=== PATIENT | male | born 1960 | race Caucasian/White ===

== ENCOUNTER 2016-03-20 15:41 | Outpatient (CLI) | payer MEDICARE, OTHER ==
[2016-03-20] MEDS ORDERED: GADOBUTROL 10 MMOL/10 ML VIAL IVP ONE (16:31)
== END 2016-03-20 15:42 | disposition home or self-care (01) ==
DX: R41.3 Other amnesia (principal); I48.0 Paroxysmal atrial fibrillation; R51 Headache; R41.82 Altered mental status, unspecified; R90.82 White matter disease, unspecified
CPT/HCPCS: 70553; A9585

== ENCOUNTER 2016-04-17 13:08 | Outpatient (CLI) | payer MEDICARE, OTHER | END 2016-04-17 13:09 | disposition home or self-care (01) | DX: I48.0 Paroxysmal atrial fibrillation (principal) ==

== ENCOUNTER 2016-05-11 11:00 | Outpatient (CLI) | payer MEDICARE, OTHER | END 2016-05-11 11:01 | disposition home or self-care (01) | DX: N39.0 Urinary tract infection, site not specified (principal) ==

== ENCOUNTER 2016-05-14 08:00 | Outpatient (CLI) | payer MEDICARE, OTHER | END 2016-05-14 08:01 | disposition home or self-care (01) | DX: R41.3 Other amnesia (principal); R51 Headache; D72.829 Elevated white blood cell count, unspecified; R63.4 Abnormal weight loss; R41.82 Altered mental status, unspecified ==

== ENCOUNTER 2016-05-25 10:14 | Outpatient (CLI) | payer MEDICARE, OTHER ==
[2016-05-25] MEDS ORDERED: IOPAMIDOL-300 50 ML VIAL PO ONE (12:14)
[2016-05-25] MEDS ORDERED: IOPAMIDOL-300 100 ML VIAL IVP ONE (12:15)
== END 2016-05-25 10:15 | disposition home or self-care (01) ==
DX: J44.1 Chronic obstructive pulmonary disease with (acute) exacerbation (principal); R53.83 Other fatigue; R63.4 Abnormal weight loss; D72.829 Elevated white blood cell count, unspecified; F17.200 Nicotine dependence, unspecified, uncomplicated; R41.82 Altered mental status, unspecified
CPT/HCPCS: 71260; 74177; Q9967

== ENCOUNTER 2016-07-24 11:10 | Outpatient (CLI) | payer MEDICARE, OTHER | END 2016-07-24 11:11 | disposition home or self-care (01) | LOC: SC 11:10 | PROVIDERS: ATTEND Nurse Practitioner Family | DX: G47.33 Obstructive sleep apnea (adult) (pediatric) (principal) | CPT/HCPCS: 99215; G0463; 99212 ==

== ENCOUNTER 2016-08-18 21:01 | Outpatient (CLI) | payer MEDICARE, OTHER | END 2016-08-18 21:02 | disposition home or self-care (01) | LOC: SC 21:01 | PROVIDERS: ATTEND Internal Medicine Pulmonary Disease | DX: G47.33 Obstructive sleep apnea (adult) (pediatric) (principal); G47.61 Periodic limb movement disorder; R00.1 Bradycardia, unspecified; Z68.29 Body mass index [BMI] 29.0-29.9, adult | CPT/HCPCS: 95811 ==

== ENCOUNTER 2016-09-06 09:42 | Outpatient (CLI) | payer MEDICARE, OTHER ==
[2016-09-06 20:30] LABS: BUN - BLOOD UREA NITROGEN 12 mg/dL (6-20); CALCIUM 8.9 mg/dL (8.5-10.3); CARBON DIOXIDE - CO2 27 mmol/L (21-32); CHLORIDE 107 mmol/L (101-111); CREATININE 0.8 mg/dL (0.6-1.2); GFR - MDRD 100 (>89); GLUCOSE 91 mg/dL (70-100); POTASSIUM 4.4 mmol/L (3.5-5.0); SODIUM 140 mmol/L (135-145)
== END 2016-09-06 09:43 | disposition home or self-care (01) ==
LOC: LAB.WCP 09:42
PROVIDERS: ATTEND Family Medicine
DX: I48.0 Paroxysmal atrial fibrillation (principal)
CPT/HCPCS: 36415; 80048; 80162

== ENCOUNTER 2016-09-19 14:30 | Outpatient (CLI) | payer MEDICARE, OTHER | END 2016-09-19 14:31 | disposition home or self-care (01) | LOC: SC 14:30 | PROVIDERS: ATTEND Nurse Practitioner Family | DX: G47.33 Obstructive sleep apnea (adult) (pediatric) (principal); G47.61 Periodic limb movement disorder; R00.1 Bradycardia, unspecified | CPT/HCPCS: 99214; G0463; 99212 ==

== ENCOUNTER 2016-12-27 11:15 | Outpatient (CLI) | payer MEDICARE, OTHER | END 2016-12-27 11:16 | disposition home or self-care (01) | LOC: SC 11:15 | PROVIDERS: ATTEND Nurse Practitioner Family | DX: G47.33 Obstructive sleep apnea (adult) (pediatric) (principal) | CPT/HCPCS: 99215; G0463; 99212 ==

== ENCOUNTER 2017-01-05 19:24 | Outpatient (CLI) | payer MEDICARE, OTHER | END 2017-01-05 19:25 | disposition home or self-care (01) | LOC: SC 19:24 | PROVIDERS: ATTEND Internal Medicine Pulmonary Disease | DX: G47.33 Obstructive sleep apnea (adult) (pediatric) (principal); Z68.41 Body mass index [BMI] 40.0-44.9, adult | CPT/HCPCS: 95810 ==

== ENCOUNTER 2017-03-20 14:39 | Outpatient (CLI) | payer MEDICARE, OTHER | END 2017-03-20 14:40 | disposition home or self-care (01) | LOC: SC 14:39 | PROVIDERS: ATTEND Nurse Practitioner Family | DX: G47.33 Obstructive sleep apnea (adult) (pediatric) (principal) | CPT/HCPCS: 99214; G0463; 99212 ==

== ENCOUNTER 2017-05-07 08:41 | Outpatient (CLI) | payer MEDICARE, OTHER ==
[2017-05-07 08:52] LABS: BASOPHILS # (AUTO) 0.2 10^3/uL (0.0-0.1); BASOPHILS % (AUTO) 1.3 %; EOSINOPHILS # (AUTO) 0.2 10^3/uL (0.0-0.7); EOSINOPHILS % (AUTO) 1.6 %; HGB - HEMOGLOBIN 15.7 g/dL (14.0-18.0); LYMPHOCYTES # (AUTO) 2.7 10^3/uL (1.5-3.5); LYMPHOCYTES % (AUTO) 20.6 %; MEAN CORPUSCULAR HEMOGLOBIN 29.5 pg (27.0-31.0); MEAN CORPUSCULAR HGB CONC 33.8 g/dL (32.0-36.0); MEAN CORPUSCULAR VOLUME 87.4 fL (80.0-94.0); MEAN PLATELET VOLUME 8.4 fL (7.4-11.4); MONOCYTES # (AUTO) 1.4 10^3/uL (0.0-1.0); MONOCYTES % (AUTO) 10.7 %; NEUTROPHILS # (AUTO) 8.6 10^3/uL (1.5-6.6); NEUTROPHILS % (AUTO) 65.8 %; PLT - PLATELET COUNT 352 10^3/uL (130-450); RED BLOOD COUNT 5.31 10^6/uL (4.70-6.10); RED CELL DISTRIBUTION WIDTH 14.5 % (12.0-15.0); WHITE BLOOD COUNT 13.1 x10^3/uL (4.8-10.8)
== END 2017-05-07 08:42 | disposition home or self-care (01) ==
LOC: LAB 08:41
PROVIDERS: ATTEND Internal Medicine Cardiovascular Disease
DX: I45.2 Bifascicular block (principal)
CPT/HCPCS: 36415; 85025

== ENCOUNTER 2017-05-07 10:36 | Outpatient (CLI) | payer MEDICARE, OTHER | END 2017-05-07 10:37 | disposition home or self-care (01) | LOC: SC 10:36 | PROVIDERS: ATTEND Nurse Practitioner Family | DX: G47.33 Obstructive sleep apnea (adult) (pediatric) (principal); I45.2 Bifascicular block | CPT/HCPCS: 36415; 85025; 99214; G0463; 99212 ==

== ENCOUNTER 2017-05-21 17:16 | Outpatient (CLI) | payer MEDICARE, OTHER | END 2017-05-21 17:17 | disposition home or self-care (01) | LOC: LAB.R 17:16 | PROVIDERS: ATTEND Family Medicine | DX: Z79.891 Long term (current) use of opiate analgesic (principal) | CPT/HCPCS: 81599; G0480; 83992 ==

== ENCOUNTER 2017-08-16 10:30 | Outpatient (CLI) | payer MEDICARE, OTHER | END 2017-08-16 10:31 | disposition home or self-care (01) | LOC: LAB.WCP 10:30 | PROVIDERS: ATTEND Family Medicine | DX: Z79.891 Long term (current) use of opiate analgesic (principal) | CPT/HCPCS: 80307; 81599; G0480; 80346 ==

== ENCOUNTER 2017-08-23 13:10 | Outpatient (CLI) | payer MEDICARE, OTHER ==
[2017-08-23 13:58] LABS: BASOPHILS # (AUTO) 0.2 10^3/uL (0.0-0.1); BASOPHILS % (AUTO) 1.2 %; EOSINOPHILS # (AUTO) 0.1 10^3/uL (0.0-0.7); EOSINOPHILS % (AUTO) 0.9 %; HGB - HEMOGLOBIN 16.1 g/dL (14.0-18.0); LYMPHOCYTES # (AUTO) 2.5 10^3/uL (1.5-3.5); LYMPHOCYTES % (AUTO) 18.7 %; MEAN CORPUSCULAR HEMOGLOBIN 29.6 pg (27.0-31.0); MEAN CORPUSCULAR HGB CONC 33.2 g/dL (32.0-36.0); MEAN CORPUSCULAR VOLUME 89.2 fL (80.0-94.0); MEAN PLATELET VOLUME 9.3 fL (7.4-11.4); MONOCYTES # (AUTO) 1.2 10^3/uL (0.0-1.0); MONOCYTES % (AUTO) 8.7 %; NEUTROPHILS # (AUTO) 9.6 10^3/uL (1.5-6.6); NEUTROPHILS % (AUTO) 70.5 %; PLT - PLATELET COUNT 363 10^3/uL (130-450); RED BLOOD COUNT 5.45 10^6/uL (4.70-6.10); RED CELL DISTRIBUTION WIDTH 14.9 % (12.0-15.0); WHITE BLOOD COUNT 13.6 x10^3/uL (4.8-10.8)
[2017-08-23 14:19] LABS: ALBUMIN 3.7 g/dL (3.2-5.5); ALBUMIN/GLOBULIN RATIO 1.2 (1.0-2.2); BILIRUBIN,TOTAL 0.6 mg/dL (0.2-1.0); CALCIUM 9.2 mg/dL (8.5-10.3); CREATININE 0.7 mg/dL (0.6-1.2); TOTAL PROTEIN 6.9 g/dL (6.7-8.2)
== END 2017-08-23 13:11 | disposition home or self-care (01) ==
LOC: LAB 13:10
PROVIDERS: ATTEND Family Medicine
DX: D72.829 Elevated white blood cell count, unspecified (principal); Z12.5 Encounter for screening for malignant neoplasm of prostate; E29.1 Testicular hypofunction; J44.1 Chronic obstructive pulmonary disease with (acute) exacerbation; R03.0 Elevated blood-pressure reading, without diagnosis of hypertension
CPT/HCPCS: 36415; 80053; 84443; 85025; G0103; 84153

== ENCOUNTER 2017-11-06 11:01 | Outpatient (CLI) | payer MEDICARE, OTHER | END 2017-11-06 11:02 | disposition home or self-care (01) | LOC: SC 11:01 | PROVIDERS: ATTEND Nurse Practitioner Family | DX: G47.33 Obstructive sleep apnea (adult) (pediatric) (principal) | CPT/HCPCS: 99214; G0463; 99212 ==

== ENCOUNTER 2018-04-23 11:50 | Outpatient (CLI) | payer MEDICARE, OTHER ==
[2018-04-23 12:01] LABS: BASOPHILS # (AUTO) 0.2 10^3/uL (0.0-0.1); BASOPHILS % (AUTO) 1.3 %; EOSINOPHILS # (AUTO) 0.3 10^3/uL (0.0-0.7); EOSINOPHILS % (AUTO) 2.1 %; HGB - HEMOGLOBIN 16.1 g/dL (14.0-18.0); LYMPHOCYTES # (AUTO) 3.5 10^3/uL (1.5-3.5); LYMPHOCYTES % (AUTO) 26.1 %; MEAN CORPUSCULAR HEMOGLOBIN 29.7 pg (27.0-31.0); MEAN CORPUSCULAR HGB CONC 33.8 g/dL (32.0-36.0); MEAN CORPUSCULAR VOLUME 87.9 fL (80.0-94.0); MEAN PLATELET VOLUME 8.8 fL (7.4-11.4); MONOCYTES # (AUTO) 1.5 10^3/uL (0.0-1.0); MONOCYTES % (AUTO) 10.9 %; NEUTROPHILS # (AUTO) 8.1 10^3/uL (1.5-6.6); NEUTROPHILS % (AUTO) 59.6 %; PLT - PLATELET COUNT 341 10^3/uL (130-450); RED BLOOD COUNT 5.42 10^6/uL (4.70-6.10); WHITE BLOOD COUNT 13.6 x10^3/uL (4.8-10.8)
[2018-04-23 12:16] LABS: ALBUMIN 3.7 g/dL (3.2-5.5); ALBUMIN/GLOBULIN RATIO 1.2 (1.0-2.2); BILIRUBIN,TOTAL 0.6 mg/dL (0.2-1.0); CALCIUM 8.7 mg/dL (8.5-10.3); CREATININE 0.9 mg/dL (0.6-1.2); TOTAL PROTEIN 6.7 g/dL (6.7-8.2)
== END 2018-04-23 11:51 | disposition home or self-care (01) ==
LOC: LAB 11:50
PROVIDERS: ATTEND Internal Medicine Cardiovascular Disease
DX: I48.0 Paroxysmal atrial fibrillation (principal)
CPT/HCPCS: 36415; 80053; 85025

== ENCOUNTER 2018-08-29 08:00 | Outpatient (CLI) | payer MEDICARE, OTHER ==
[2018-08-29 14:00] LABS: BASOPHILS # (AUTO) 0.1 10^3/uL (0.0-0.1); BASOPHILS % (AUTO) 0.8 %; EOSINOPHILS # (AUTO) 0.2 10^3/uL (0.0-0.7); EOSINOPHILS % (AUTO) 2.2 %; HGB - HEMOGLOBIN 15.1 g/dL (14.0-18.0); LYMPHOCYTES # (AUTO) 2.6 10^3/uL (1.5-3.5); LYMPHOCYTES % (AUTO) 26.1 %; MEAN CORPUSCULAR HEMOGLOBIN 29.4 pg (27.0-31.0); MEAN CORPUSCULAR HGB CONC 33.2 g/dL (32.0-36.0); MEAN CORPUSCULAR VOLUME 88.6 fL (80.0-94.0); MEAN PLATELET VOLUME 9.8 fL (7.4-11.4); MONOCYTES % (AUTO) 9.7 %; NEUTROPHILS # (AUTO) 6.1 10^3/uL (1.5-6.6); NEUTROPHILS % (AUTO) 61.2 %; PLT - PLATELET COUNT 277 10^3/uL (130-450); RED BLOOD COUNT 5.13 10^6/uL (4.70-6.10); RED CELL DISTRIBUTION WIDTH 14.5 % (12.0-15.0)
[2018-08-29 14:20] LABS: ALBUMIN 3.5 g/dL (3.2-5.5); ALBUMIN/GLOBULIN RATIO 1.2 (1.0-2.2); ALKALINE PHOSPHATASE 58 IU/L (42-121); ALT ALANINE AMINOTRANSFERASE 30 IU/L (10-60); AST ASPARTATE AMINOTRANSFERASE 23 IU/L (10-42); BILIRUBIN,TOTAL 0.4 mg/dL (0.2-1.0); BUN - BLOOD UREA NITROGEN 10 mg/dL (6-20); CALCIUM 8.9 mg/dL (8.5-10.3); CARBON DIOXIDE - CO2 26 mmol/L (21-32); CHLORIDE 106 mmol/L (101-111); CREATININE 0.8 mg/dL (0.6-1.2); GFR - MDRD 99 (>89); GLUCOSE 85 mg/dL (70-100); SODIUM 141 mmol/L (135-145); TOTAL PROTEIN 6.4 g/dL (6.7-8.2)
[2018-08-29 14:21] LABS: CRP - C-REACTIVE PROTEIN < 1.0 mg/dL (0-1.0)
[2018-08-29 14:23] LABS: THYROID STIMULATING HORMONE 2.85 uIU/mL (0.34-5.60)
[2018-08-29 14:25] LABS: FREE T4 (FREE THYROXINE) 1.09 ng/dL (0.58-1.64)
== END 2018-08-29 23:59 | disposition home or self-care (01) ==
LOC: LAB.WCP 08:00
PROVIDERS: ATTEND Family Medicine
DX: H05.20 Unspecified exophthalmos (principal); R51 Headache
CPT/HCPCS: 36415; 80053; 84439; 84443; 85025; 85651; 86140

== ENCOUNTER 2018-09-30 13:20 | Outpatient (CLI) | payer MEDICARE, OTHER | END 2018-09-30 13:21 | disposition home or self-care (01) | LOC: SC 13:20 | PROVIDERS: ATTEND Nurse Practitioner Family | DX: G47.33 Obstructive sleep apnea (adult) (pediatric) (principal) | CPT/HCPCS: 99214; G0463; 99212 ==

== ENCOUNTER 2019-01-21 10:03 | Emergency (ER) | payer MEDICARE, OTHER ==
[2019-01-21 11:41] LABS: BASOPHILS # (AUTO) 0.1 10^3/uL (0.0-0.1); EOSINOPHILS # (AUTO) 0.1 10^3/uL (0.0-0.7); HGB - HEMOGLOBIN 16.6 g/dL (14.0-18.0); LYMPHOCYTES # (AUTO) 2.6 10^3/uL (1.5-3.5); LYMPHOCYTES % (AUTO) 22.8 %; MEAN CORPUSCULAR HEMOGLOBIN 29.7 pg (27.0-31.0); MEAN CORPUSCULAR HGB CONC 33.2 g/dL (32.0-36.0); MEAN CORPUSCULAR VOLUME 89.6 fL (80.0-94.0); MEAN PLATELET VOLUME 10.7 fL (7.4-11.4); MONOCYTES # (AUTO) 0.9 10^3/uL (0.0-1.0); MONOCYTES % (AUTO) 8.1 %; NEUTROPHILS # (AUTO) 7.7 10^3/uL (1.5-6.6); NEUTROPHILS % (AUTO) 66.8 %; PLT - PLATELET COUNT 352 10^3/uL (130-450); RED BLOOD COUNT 5.58 10^6/uL (4.70-6.10); RED CELL DISTRIBUTION WIDTH 14.7 % (12.0-15.0); WHITE BLOOD COUNT 11.6 x10^3/uL (4.8-10.8)
--- NOTE | 2019-01-21 11:51 | ED Physician Documentation ---
History of Present Illness - Stated complaint Stated Complaint: DIFFICUTLY BREATHING - Chief complaint Chief Complaint: Resp - Additonal information Additional information: This is a 58-year-old male with a history of atrial fibrillation, asthma, depression, chronic back pain, and obstructive sleep apnea, who presents with several complaints. Patient has a cough productive of green sputum for the last 2 days, he has been more fatigued than usual the last 4 days, he has had some sinus congestion, and eye pressure for the same time. He denies measured fever but he does feel rundown. He has also had some mild migratory abdominal cramp ing and loose stool. He denies dysuria, denies vomiting. 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 At this time he denies chest pain or shortness of breath. He has had clear rhinorrhea. Review of Systems Constitutional: denies: Fever Nose: reports: Rhinorrhea / runny nose Respiratory: reports: Cough. denies: Dyspnea GI: denies: Vomiting : denies: Dysuria PD PAST MEDICAL HISTORY - Past Medical History Cardiovascular: Atrial fibrillation Respiratory: Asthma Endocrine/Autoimmune: None : None Psych: Depression Musculoskeletal: Chronic back pain Derm: None - Past Surgical History Past Surgical History: Yes General: Appendectomy Ortho: Other - Present Medications Home Medications: Ambulatory Orders Medication Instructions Recorded Confirmed Apixaban [Eliquis] 1 tab PO DAILY 10/01/17 10/22/17 Arformoterol Tartrate [Brovana] 1 inhaler INH DAILY 10/01/17 10/22/[address] [Voltaren] 1 tab PO DAILY 10/01/17 10/22/17 Lifitegrast [Xiidra] 0.2 ml EACHEYE DAILY 10/01/17 10/22/17 clonazePAM [Clonazepam] 1 tab PO DAILY 10/01/17 10/22/17 Acetaminophen 650 mg PO Q6HR #30 tablet 01/21/19 Benzonatate [Tessalon Perle] 100 - 200 mg PO TID PRN #30 capsule 01/21/19 - Allergies Allergies/Adverse Reactions: Allergies Allergy/AdvReac Type Severity Reaction Status Date / Time cephalexin Allergy Unknown Verified 01/22/19 07:24 minocycline Allergy Unknown Verified 01/22/19 07:24 Penicillins Allergy Hives Verified 01/21/19 10:11 terbinafine Allergy Unknown Verified 01/22/19 07:24 testosterone Allergy Hives Verified 01/21/19 10:11 - Social History Does the pt smoke?: No Smoking Status: Never smoker - Immunizations Immunizations are current?: Yes PD ED PE NORMAL - General General: Alert and oriented X 3, Other (Very well-appearing) - HEENT HEENT: Atraumatic, PERRL, Moist mucous membranes - Neck Neck: Supple, no meningeal sign - Cardiac Cardiac: RRR - Respiratory Respiratory: No respiratory distress, Clear bilaterally - Abdomen Abdomen: Soft, Non tender, Non distended - Derm Derm: No rash - Extremities Extremities: No deformity - Neuro Neuro: Alert and oriented X 3 Results - Vitals Vitals: Vital Signs - 24 hr 01/21/19 01/21/19 01/21/19 10:06 12:07 13:20 Temperature 37.1 C Heart Rate 78 67 78 Respiratory 18 15 12 Rate Blood Pressure 118/69 132/80 H 138/86 H O2 Saturation 96 95 97 Oxygen O2 Source Room air - EKG (time done) 10:23 Other comments: Other comments (Rhythm sinus, Rate 78, there is a right bundle branch block and a left anterior fascicular block, no signifciant changes from 08/15/2018 (other than rhythm is now sinus) PVC present) - Labs Labs: Laboratory Tests 01/21/19 01/21/19 01/21/19 11:35 11:35 11:35 WBC 11.6 H RBC 5.58 Hgb 16.6 Hct 50.0 MCV 89.6 MCH 29.7 MCHC 33.2 RDW 14.7 Plt Count 352 MPV 10.7 Neut # (Auto) 7.7 H Lymph # (Auto) 2.6 [place] # (Auto) 0.9 Eos # (Auto) 0.1 Baso # (Auto) 0.1 Absolute Nucleated RBC 0.00 Nucleated RBC % 0.0 Sodium 140 Potassium 4.1 Chloride 106 Carbon Dioxide 25 Anion Gap 9.0 BUN 12 Creatinine 0.7 Estimated GFR (MDRD) 115 Glucose 85 Calcium 9.4 Total Bilirubin 0.4 AST 23 ALT 25 Alkaline Phosphatase 59 Troponin I High Sens 17.2 B-Natriuretic Peptide Total Protein 6.8 Albumin 4.0 Globulin 2.8 Albumin/Globulin Ratio 1.4 Lipase 33 11/06/19 11:35 WBC RBC Hgb Hct MCV MCH MCHC RDW Plt Count MPV Neut # (Auto) Lymph # (Auto) [place] # (Auto) Eos # (Auto) Baso # (Auto) Absolute Nucleated RBC Nucleated RBC % Sodium Potassium Chloride Carbon Dioxide Anion Gap BUN Creatinine Estimated GFR (MDRD) Glucose Calcium Total Bilirubin AST ALT Alkaline Phosphatase Troponin I High Sens B-Natriuretic Peptide 54 Total Protein Albumin Globulin Albumin/Globulin Ratio Lipase - Rads (name of study) CXR Radiology: Other (No acute cardiopulmonary abnormality) PD MEDICAL DECISION MAKING - ED course Complexity details: considered differential (URI, pneumonia, ACS, sinusitis, MSK pain) ED course: Pt is very well-appearing on exam. EKG shows sinus rhythm, high-sensitivity troponin is negative, BNP normal, and his brief 1 minute episode of chest pain would be highly atypical for ACS. CXR unremarkable. Labs show a very mild leukocytosis which is non-specific, otherwise unremarkable. He has a benign an non-tender abdomen. His symptoms are consistent with a viral syndrome, and at this time I recommended to him supportive care, PCP follow up, and return to the ED with any new or worsening symptoms. He remains well-appearing with a non- tender abdomen, no respiratory distress, and normal vital signs on my repeat evaluation. Pt did bring up several chronic issues - he states he thinks his vision is slowly declining, though he is PERRL today, has no obvious visual field deficit and is able to read without issue with his glasses on my exam, so I recommended PCP follow up on this. He has also had tinnitus, but this has also been ongoing for years and I again recommended PCP follow up. Pt agrees and was discharged home. Departure - Departure Disposition: Home, Self Care Clinical Impression: Viral URI Condition: Good Instructions: ED Viral Syndrome Follow-Up: Bhanu Cruz MD [Primary Care Provider] - Prescriptions: Acetaminophen 650 mg PO Q6HR #30 tablet Benzonatate [Tessalon Perle] 100 - 200 mg PO TID PRN #30 capsule PRN Reason: Cough Comments: You appear to have a viral infection. Your labs and chest x-ray look reassuring today. You may take Tylenol at home, drink plenty fluids, get rest, and follow- up with your primary care provider. If you develop worsening symptoms such as chest pain, trouble breathing, fever despite the Tylenol, please return to the emergency department. Discharge Date/Time: 01/21/19 14:00
[2019-01-21 11:57] LABS: ALBUMIN/GLOBULIN RATIO 1.4 (1.0-2.2); BILIRUBIN,TOTAL 0.4 mg/dL (0.2-1.0); CALCIUM 9.4 mg/dL (8.5-10.3); CREATININE 0.7 mg/dL (0.6-1.2); TOTAL PROTEIN 6.8 g/dL (6.7-8.2)
[2019-01-21 13:20] VITALS: BP 138/86
--- NOTE | 2019-01-21 13:27 | XRAY Report ---
Reason: orthopnea, dyspnea on exertion Procedure Date: 01/21/2019 Accession Number: [id number] / [id number] Procedure: XR - Chest 2 View X-Ray CPT Code: 12555 Final Report FULL RESULT: EXAM: CHEST RADIOGRAPHY EXAM DATE: 01/21/2019 01:08 PM. CLINICAL HISTORY: Orthopnea, dyspnea on exertion. COMPARISON: CHEST 1 VIEW 08/16/2015 2:44 PM. TECHNIQUE: 2 views. FINDINGS: Lungs/Pleura: No focal opacities evident. No pleural effusion. No pneumothorax. Lung volumes are high with flattened diaphragms as can be seen with obstructive lung disease. Mediastinum: Heart and mediastinal contours are stable, not enlarged. Other: None. IMPRESSION: No acute cardiopulmonary abnormality. RADIA
== END 2019-01-21 14:00 | disposition home or self-care (01) ==
LOC: ED 10:03
DX: J06.9 Acute upper respiratory infection, unspecified (principal); R07.89 Other chest pain; I45.2 Bifascicular block; I49.3 Ventricular premature depolarization; I48.91 Unspecified atrial fibrillation; Z79.01 Long term (current) use of anticoagulants; H93.19 Tinnitus, unspecified ear
CPT/HCPCS: 36415; 71046; 80053; 83690; 83880; 84484; 85025; 93005; 99283; 99284

== ENCOUNTER 2019-02-05 09:04 | Outpatient (CLI) | payer MEDICARE, OTHER ==
[~2019-02-05 09:04] MED LIST: ALBUTEROL NEB 2.5 MG/3 ML INH ONE
== END 2019-02-05 09:05 | disposition home or self-care (01) ==
LOC: RT 09:04
PROVIDERS: ATTEND Internal Medicine
DX: J44.9 Chronic obstructive pulmonary disease, unspecified (principal)
CPT/HCPCS: 94060

== ENCOUNTER 2019-02-18 08:29 | Outpatient (CLI) | payer MEDICARE, OTHER ==
--- NOTE | 2019-02-18 15:21 | Ultrasound Report ---
Reason: UNSPECIFIED ABD PAIN, ABN WEIGHT Procedure Date: 02/18/2019 Accession Number: [id number] / [id number] Procedure: US - Abdomen Complete CPT Code: Final Report FULL RESULT: EXAM: Abdomen Complete DATE: 02/18/2019 9:51 AM CLINICAL HISTORY: Unspecified abdominal weight loss and abdominal pain. COMPARISON: None. TECHNIQUE: Real-time scanning was performed with static images obtained. FINDINGS: Liver: Heterogeneous echotexture with nodular contour. Areas of focal fatty sparing. 16.0 cm Main portal vein flow: Hepatopetal. Gallbladder: Normal. No stones, wall thickening, or sonographic Justin's sign. Biliary System: Common bile duct measures 2.1 mm. No intrahepatic or extrahepatic ductal dilatation. Pancreas: Obscured by bowel gas. Kidneys: Right: 12 cm longitudinally. Normal. No contour-deforming mass, stones, or hydronephrosis. Left: 12 cm longitudinally. Normal. No contour-deforming mass, stones, or hydronephrosis. Spleen: 10.4 x 4.1 x 4.0 cm. Normal in size and echotexture. Aorta and Inferior Vena Cava: Unremarkable. IMPRESSION: 1. Heterogeneous and nodular liver consistent with fatty infiltration versus parenchymal liver disease. 2. Nonvisualization of the pancreas. RADIA
== END 2019-02-18 08:30 | disposition home or self-care (01) ==
LOC: DI 08:29
PROVIDERS: ATTEND Internal Medicine
DX: R10.9 Unspecified abdominal pain (principal); R63.4 Abnormal weight loss
CPT/HCPCS: 76700

== ENCOUNTER 2019-08-17 16:20 | Outpatient (CLI) | payer MEDICARE, OTHER ==
--- NOTE | 2019-08-17 16:57 | CT Report ---
Reason: ONGOING SINUS INFECTION Procedure Date: 08/17/2019 Accession Number: [id number] / [id number] Procedure: CT - Sinuses CPT Code: Final Report FULL RESULT: PROCEDURE: Sinuses INDICATIONS: ONGOING SINUS INFECTION TECHNIQUE: Noncontrast 3.0 mm axial images acquired from the frontal sinuses to the mid-sella, with coronal and sagittal reformats. For radiation dose reduction, the following was used: automated exposure control, adjustment of mA and/or kV according to patient size. COMPARISON: None. FINDINGS: Image quality: Excellent. Maxillary Sinuses: No bony remodeling or destruction. Sinuses are clear. Ethmoid Air Cells: No bony remodeling or destruction. There is mild mucosal thickening within the left posterior ethmoid air cells. Right ethmoid air cells are clear. Sphenoid Sinuses: No bony remodeling or destruction. Sinuses are clear. Frontal Sinuses: No bony remodeling or destruction. Sinuses are clear. Ostiomeatal Complexes: Ostiomeatal complexes are patent. No Vinod cells. Miscellaneous: Visualized intra-orbital contents are normal. No uziel bullosa. Mild leftward nasal septal deviation. IMPRESSION: 1. Minimal left ethmoid sinus mucosal thickening. Otherwise negative evaluation of the sinuses. 2. Mild leftward nasal septal deviation. Reviewed by: Dhaval Monterroso MD on 08/17/2019 4:52 PM PDT Approved by: Dhaval Monterroso MD on 08/17/2019 4:52 PM PDT Station ID: [id number]
== END 2019-08-17 16:21 | disposition home or self-care (01) ==
LOC: DI 16:20
PROVIDERS: ATTEND Otolaryngology
DX: J32.2 Chronic ethmoidal sinusitis (principal); J34.2 Deviated nasal septum
CPT/HCPCS: 70486

== ENCOUNTER 2020-02-22 09:01 | Outpatient (CLI) | payer MEDICARE, OTHER ==
[2020-02-22 09:40] LABS: BASOPHILS # (AUTO) 0.1 10^3/uL (0.0-0.1); EOSINOPHILS # (AUTO) 0.1 10^3/uL (0.0-0.7); EOSINOPHILS % (AUTO) 0.8 %; HGB - HEMOGLOBIN 17.4 g/dL (14.0-18.0); LYMPHOCYTES # (AUTO) 2.5 10^3/uL (1.5-3.5); LYMPHOCYTES % (AUTO) 24.2 %; MEAN CORPUSCULAR HEMOGLOBIN 30.1 pg (27.0-31.0); MEAN CORPUSCULAR HGB CONC 33.1 g/dL (32.0-36.0); MEAN CORPUSCULAR VOLUME 90.8 fL (80.0-94.0); MEAN PLATELET VOLUME 10.4 fL (7.4-11.4); MONOCYTES # (AUTO) 0.9 10^3/uL (0.0-1.0); MONOCYTES % (AUTO) 8.6 %; NEUTROPHILS # (AUTO) 6.7 10^3/uL (1.5-6.6); PLT - PLATELET COUNT 369 10^3/uL (130-450); RED BLOOD COUNT 5.78 10^6/uL (4.70-6.10); WHITE BLOOD COUNT 10.3 x10^3/uL (4.8-10.8)
[2020-02-22 09:49] LABS: ALBUMIN/GLOBULIN RATIO 1.5 (1.0-2.2); BILIRUBIN,TOTAL 0.8 mg/dL (0.2-1.0); CALCIUM 9.1 mg/dL (8.5-10.3); CREATININE 0.7 mg/dL (0.6-1.2); TOTAL PROTEIN 6.7 g/dL (6.7-8.2)
[2020-02-22 10:02] LABS: CREATININE,URINE 27.7 mg/dL
[2020-02-22 10:06] LABS: THYROID STIMULATING HORMONE 1.35 uIU/mL (0.34-5.60)
[2020-02-22 11:31] LABS: MICROALBUMIN,URINE < 0.2 mg/dL (0-300.0)
== END 2020-02-22 09:02 | disposition home or self-care (01) ==
LOC: LAB 09:01
PROVIDERS: ATTEND Physician Assistant
DX: E04.9 Nontoxic goiter, unspecified (principal); Z12.5 Encounter for screening for malignant neoplasm of prostate; I11.0 Hypertensive heart disease with heart failure; I50.9 Heart failure, unspecified; R53.83 Other fatigue; R06.00 Dyspnea, unspecified; R19.4 Change in bowel habit; R39.198 Other difficulties with micturition
CPT/HCPCS: 36415; 80053; 82043; 82570; 82607; 82746; 84443; 85025; G0103; 84153

== ENCOUNTER 2020-02-24 07:14 | Outpatient (CLI) | payer MEDICARE, OTHER ==
--- NOTE | 2020-02-24 09:49 | CT Report ---
PROCEDURE: CHEST WO INDICATIONS: DYSPNEA AT REST, COUGH, ABN RESP SOUNDS R, SMOKER TECHNIQUE: Noncontrast 5 mm thick sections acquired from the pulmonary apices to the posterior costophrenic angl es. 7 mm thick coronal and sagittal MIP reformats were then acquired. For radiation dose reduction, the following was used: automated exposure control, adjustment of mA and/or kV according to patient size. COMPARISON: CT chest dated 05/28/2016 FINDINGS: Image quality: Excellent. Lungs and pleura: Mild scattered subsegmental scarring/atelectasis. No acute consolidation. No pleu ral effusions or pneumothorax. Diffuse peribronchial cuffing suggestive of nonspecific bronchitis an d/or reactive airways disease. Mediastinum: Heart size is normal. No pericardial effusion. No mediastinal adenopathy by size cri teria. Thoracic aorta and central pulmonary arteries are normal in size. Esophagus is normal in [place] iber. No hiatal hernia. Bones and chest wall: No suspicious bony lesions. No vertebral body compression fractures. No axil seb or supraclavicular adenopathy by size criteria. The thyroid is normal in size. Abdomen: Visualized upper abdominal solid organs and bowel loops appear normal in the absence of con trast. IMPRESSION: Diffuse peribronchial cuffing suggestive of nonspecific bronchitis and/or reactive airways disease. Elsewhere, no acute consolidation Reviewed by: Urban Rasmussen MD on 02/24/2020 9:47 AM PST Approved by: Urban Rasmussen MD on 02/24/2020 9:47 AM PST Station ID: [id number]
--- NOTE | 2020-02-24 09:50 | Ultrasound Report ---
PROCEDURE: Abdomen Complete INDICATIONS: RUQ, CHANGE IN BOWEL HABITS TECHNIQUE: Real-time scanning was performed of the abdominal and retroperitoneal organs, with image documentatio n. COMPARISON: None. FINDINGS: Liver: Coarsely echogenic liver suggesting hepatic steatosis/diffuse hepatocellular disease. Please correlate with LFTs. Gallbladder: Unremarkable Biliary ducts: Intrahepatic bile ducts are non-dilated. Extrahepatic bile duct caliber measures 5 m m. Normal is 6-7 mm or less in diameter, or 10 mm or less post-cholecystectomy. Pancreas: Visualized portions of the pancreas are sonographically normal. Spleen: Spleen is normal in size and homogeneous in echotexture. Kidneys: Kidneys are normal in size and echotexture. Right kidney measures 11.3 cm long; left kidne y measures 11.4 cm long. No hydronephrosis or nephrolithiasis. No solid masses. Aorta: Visualized aorta is normal in caliber at less than 3 cm. Iliacs: Proximal common iliac arteries are normal in caliber at less than 2.5 cm. IVC: Intrahepatic inferior vena cava is patent. Miscellaneous: No free abdominal fluid. IMPRESSION: Coarsely echogenic liver suggesting hepatic steatosis/diffuse hepatocellular disease. Please correlat e with LFTs. Reviewed by: Urban Rasmussen MD on 02/24/2020 9:49 AM PST Approved by: Urban Rasmussen MD on 02/24/2020 9:49 AM PST Station ID: [id number]
--- NOTE | 2020-02-24 10:14 | Ultrasound Report ---
PROCEDURE: Head or Neck Soft Tissue INDICATIONS: L NECK SWELLING, MASS TECHNIQUE: Real time scanning was performed of the neck region of interest, with image documentation . COMPARISON: None. FINDINGS: No soft tissue neck abnormality seen bilaterally. The right lobe of the thyroid measures 4 .7 x 2.5 x 1.9 cm. The left lobe of the thyroid measures 3.8 x 1.9 x 1.6 cm. Isthmus measures 4 mm in thickness. No discrete nodule identified. No lymphadenopathy seen. IMPRESSION: Negative examination. No lymphadenopathy or discrete mass sonographically identified. Reviewed by: Urban Rasmussen MD on 02/24/2020 10:13 AM PST Approved by: Urban Rasmussen MD on 02/24/2020 10:13 AM PST Station ID: [id number]
== END 2020-02-24 07:15 | disposition home or self-care (01) ==
LOC: DI 07:14
PROVIDERS: ATTEND Physician Assistant
DX: J98.4 Other disorders of lung (principal); R05 Cough; R06.00 Dyspnea, unspecified; R10.11 Right upper quadrant pain; R19.4 Change in bowel habit; R22.1 Localized swelling, mass and lump, neck; R09.89 Other specified symptoms and signs involving the circulatory and respiratory systems
CPT/HCPCS: 71250

== ENCOUNTER 2020-04-13 11:01 | Outpatient (CLI) | payer MEDICARE, OTHER ==
[2020-04-13] MEDS ORDERED: IOVERSOL 320 100 ML VIAL IVP ONE ×2 (11:38→15:15)
--- NOTE | 2020-04-13 17:42 | CT Report ---
PROCEDURE: ANGIO HEAD W/WO INDICATIONS: LOCALIZED SWELLING, HEADACHE, DYSPHAGIA CONTRAST: IV CONTRAST: Optiray 320 ml: 80 PO CONTRAST: *NO PO CONTRAST TECHNIQUE: Precontrast 4.5 mm thick angled axial sections acquired from the foramen magnum to the vertex. Afte r the administration of intravenous contrast, 1 mm thick sections acquired through the [place] is. Postcontrast 4.5 mm thick sections then re-acquired from the foramen magnum to the vertex. 3-di mensional sflzyhe-zijijfacz-cesolizwtp (MIP) and/or volume rendering reformats were acquired of the c entral intracranial vasculature. For radiation dose reduction, the following was used: automated ex posure control, adjustment of mA and/or kV according to patient size. COMPARISON: Brain MR 03/21/2016. FINDINGS: Image quality: Excellent. Anterior circulation: Intracranial internal carotid arteries are normal in size and flow. The flow within the paired anterior cerebral arteries is normal and symmetric. The flow within the middle cer ebral arteries is normal and symmetric. The anterior communicating artery is seen. No aneurysms are seen. Posterior circulation: Visualized portions of the vertebral arteries demonstrate normal caliber, and join to form a normal appearing basilar artery. Flow within the posterior cerebral arteries is norm al and symmetric. Right posterior cerebral artery has a origin. No aneurysms are seen. Dural sinuses demonstrate normal postcontrast enhancement. CSF spaces: Ventricles are normal in size and shape. Basal cisterns are patent. No extra-axial flu id collections. Brain: No midline shift. No intracranial bleeds or masses. Haynes-white matter interface appears int act. Skull and face: Calvarium and facial bones appear intact, without suspicious lesions. Sinuses: Visualized sinuses and mastoids are clear. IMPRESSION: 1. No acute intracranial disease process. 2. No large vessel occlusion, vascular stenosis, vascular dissection or aneurysm. Reviewed by: Valerie Brito MD, PhD on 04/13/2020 4:40 PM [place] Approved by: Valerie Brito MD, PhD on 04/13/2020 4:40 PM [place] Station ID: [id number]
--- NOTE | 2020-04-13 17:48 | CT Report ---
PROCEDURE: ANGIO NECK W INDICATIONS: LOCALIZED SWELLING, HEADACHE, DYSPHAGIA CONTRAST: IV CONTRAST: Optiray 320 ml: 80 PO CONTRAST: *NO PO CONTRAST TECHNIQUE: After the administration of intravenous contrast, 1.5 mm axial sections acquired from the aortic arch to the [place] of [place]. Coronal 3-D maximum intensity projection (MIP) and/or volume rendering ref ormats were then performed. For radiation dose reduction, the following was used: automated exposur e control, adjustment of mA and/or kV according to patient size. COMPARISON: None. FINDINGS: Image quality: Excellent. Carotid system: The great vessels demonstrate a conventional anatomy as they arise from the aortic a [facility]. The origins of the common carotid arteries appear patent. The common carotid arteries demonstr ate normal calibers and courses. The bifurcation regions appear normal bilaterally. The internal ca rotid arteries demonstrate normal caliber and course. Posterior circulation: The origins of the vertebral arteries appear patent. The more superior porti ons of the vertebral arteries demonstrate normal course and caliber. They join to form a normal appe aring basilar artery. Soft tissues: Visualized neck soft tissues demonstrate no suspicious abnormalities. The thyroid gla nd is normal in size. Bones: No suspicious bony lesions. Spine degenerative disc disease and facet arthropathy are noted. Visualized cervical spine appears normally aligned. IMPRESSION: 1. Internal carotid arteries are fully patent. 2. Vertebral arteries are fully patent. The estimate of stenosis included in the report of the imaging study was calculated using the NASCET method Reviewed by: Valerie Brito MD, PhD on 04/13/2020 4:46 PM [place] Approved by: Valerie Brito MD, PhD on 04/13/2020 4:46 PM [facility] Station ID: [id number]
== END 2020-04-13 11:02 | disposition home or self-care (01) ==
LOC: DI 11:01
PROVIDERS: ATTEND Physician Assistant
DX: R51.9 Headache, unspecified (principal); R22.1 Localized swelling, mass and lump, neck; R13.10 Dysphagia, unspecified; Z01.812 Encounter for preprocedural laboratory examination
CPT/HCPCS: 36415; 70496; 70498; 80048; Q9967

== ENCOUNTER 2020-04-13 11:05 | Outpatient (CLI) | payer MEDICARE, OTHER ==
[2020-04-13 11:36] LABS: CALCIUM 9.6 mg/dL (8.5-10.3); CREATININE 0.8 mg/dL (0.6-1.2)
== END 2020-04-13 11:06 | disposition home or self-care (01) ==
LOC: LAB 11:05
PROVIDERS: ATTEND Physician Assistant
DX: Z01.812 Encounter for preprocedural laboratory examination (principal)
CPT/HCPCS: 36415; 80048

== ENCOUNTER 2020-06-13 14:40 | Outpatient (CLI) | payer MEDICARE, OTHER ==
[2020-06-13 15:13] LABS: ALBUMIN/GLOBULIN RATIO 1.4 (1.0-2.2); BILIRUBIN,TOTAL 0.4 mg/dL (0.2-1.0); CALCIUM 9.8 mg/dL (8.5-10.3); CREATININE 0.9 mg/dL (0.6-1.2); POTASSIUM 3.6 mmol/L (3.5-5.0); TOTAL PROTEIN 6.8 g/dL (6.7-8.2)
[2020-06-13 15:30] LABS: THYROID STIMULATING HORMONE 1.84 uIU/mL (0.34-5.60)
== END 2020-06-13 14:41 | disposition home or self-care (01) ==
LOC: LAB 14:40
PROVIDERS: ATTEND Internal Medicine Cardiovascular Disease
DX: I48.91 Unspecified atrial fibrillation (principal)
CPT/HCPCS: 36415; 80053; 84443

== ENCOUNTER 2020-11-08 09:36 | Outpatient (CLI) | payer MEDICARE, OTHER ==
--- NOTE | 2020-11-08 10:21 | XRAY Report ---
PROCEDURE: Chest 2 View X-Ray INDICATIONS: CHRONIC OBSTRUCTIVE PULMONARY DISEASE, UNSPECIFIED TECHNIQUE: 2 view(s) of the chest. COMPARISON: CT of chest dated 02/24/2020. FINDINGS: Surgical changes and devices: None. Lungs and pleura: No pleural effusions or pneumothorax. There is hyperinflation. No focal infiltrate . Mediastinum: Mediastinal contours are normal. Heart size is normal. Bones and chest wall: No suspicious bony abnormalities. Soft tissues appear unremarkable. IMPRESSION: COPD. No acute cardiopulmonary pathology. Reviewed by: Glen De La oTrre MD on 11/08/2020 10:20 AM PDT Approved by: Glen De La Torre MD on 11/08/2020 10:20 AM PDT Station ID: [id number]
== END 2020-11-08 09:37 | disposition home or self-care (01) ==
LOC: DI 09:36
PROVIDERS: ATTEND Physician Assistant
DX: R05 Cough (principal); R06.2 Wheezing; J44.9 Chronic obstructive pulmonary disease, unspecified

== ENCOUNTER 2021-05-16 11:55 | Outpatient (CLI) | payer MEDICARE, OTHER ==
--- NOTE | 2021-05-16 14:56 | XRAY Report ---
PROCEDURE: Chest 2 View X-Ray INDICATIONS: COUGH TECHNIQUE: 2 view(s) of the chest. COMPARISON: Chest x-ray, 11/09/2019. FINDINGS: Surgical changes and devices: None. Lungs and pleura: Hyperinflation consistent with COPD. No pleural effusions or pneumothorax. Lungs are clear. Mediastinum: Mediastinal contours are normal. Heart size is normal. Bones and chest wall: No suspicious bony abnormalities. Soft tissues appear unremarkable. IMPRESSION: No acute cardiopulmonary disease. Reviewed by: Rodrigue Luther MD on 05/16/2021 2:54 PM PST Approved by: Rodrigue Luther MD on 05/16/2021 2:54 PM PST Station ID: [id number]
--- NOTE | 2021-05-16 18:21 | XRAY Report ---
PROCEDURE: Shoulder 2 View LT INDICATIONS: L SHOULDER PX TECHNIQUE: 2 views of the shoulder were acquired. COMPARISON: None. FINDINGS: Bones: No fractures or dislocations. No suspicious bony lesions. Visualized ribs appear intact. Mi ld acromioclavicular joint and glenohumeral joint arthritis. Soft tissues: No suspicious soft tissue calcifications. IMPRESSION: Mild osteoarthritis. Reviewed by: Valerie Brtio MD, PhD on 05/16/2021 6:20 PM PST Approved by: Valerie Brito MD, PhD on 05/16/2021 6:20 PM PST Station ID: [id number]
== END 2021-05-16 11:56 | disposition home or self-care (01) ==
LOC: DI.N 11:55
PROVIDERS: ATTEND Physician Assistant
DX: R05.9 Cough, unspecified (principal); M19.012 Primary osteoarthritis, left shoulder; Z13.9 Encounter for screening, unspecified; R06.2 Wheezing; D72.829 Elevated white blood cell count, unspecified; Z13.1 Encounter for screening for diabetes mellitus
CPT/HCPCS: 36415; 80053; 80061; 83036; 83721; 83880; 84153; 84443; 85025

== ENCOUNTER 2021-05-16 12:11 | Outpatient (CLI) | payer MEDICARE, OTHER ==
[2021-05-16 18:16] LABS: ALBUMIN 4.2 g/dL (3.2-5.5); ALBUMIN/GLOBULIN RATIO 1.6 (1.0-2.2); ALKALINE PHOSPHATASE 47 IU/L (42-121); ALT ALANINE AMINOTRANSFERASE 20 IU/L (10-60); AST ASPARTATE AMINOTRANSFERASE 17 IU/L (10-42); BILIRUBIN,TOTAL 0.9 mg/dL (0.2-1.0); BUN - BLOOD UREA NITROGEN 9 mg/dL (6-20); CALCIUM 9.4 mg/dL (8.5-10.3); CARBON DIOXIDE - CO2 30 mmol/L (21-32); CHLORIDE 99 mmol/L (101-111); CHOL/HDL RATIO 2.1 (<5.0); CHOLESTEROL 167 mg/dL; CREATININE 0.7 mg/dL (0.6-1.2); GFR - MDRD 115 (>89); GLUCOSE 80 mg/dL (70-100); HDL CHOLESTEROL 80 mg/dL; LDL CHOLESTEROL,CALCULATED 77 mg/dL; POTASSIUM 4.5 mmol/L (3.5-5.0); SODIUM 139 mmol/L (135-145); TOTAL PROTEIN 6.9 g/dL (6.7-8.2); TRIGLYCERIDES 50 mg/dL; VLDL CHOLESTEROL 10 mg/dL
[2021-05-16 18:24] LABS: BASOPHILS # (AUTO) 0.1 10^3/uL (0.0-0.1); BASOPHILS % (AUTO) 0.8 %; EOSINOPHILS # (AUTO) 0.1 10^3/uL (0.0-0.7); EOSINOPHILS % (AUTO) 0.9 %; HCT - HEMATOCRIT 51.7 % (42.0-52.0); HGB - HEMOGLOBIN 17.4 g/dL (14.0-18.0); LYMPHOCYTES # (AUTO) 2.6 10^3/uL (1.5-3.5); LYMPHOCYTES % (AUTO) 22.2 %; MEAN CORPUSCULAR HEMOGLOBIN 31.5 pg (27.0-31.0); MEAN CORPUSCULAR HGB CONC 33.7 g/dL (32.0-36.0); MEAN CORPUSCULAR VOLUME 93.7 fL (80.0-94.0); MEAN PLATELET VOLUME 11.2 fL (7.4-11.4); MONOCYTES # (AUTO) 1.2 10^3/uL (0.0-1.0); MONOCYTES % (AUTO) 10.1 %; NEUTROPHILS # (AUTO) 7.7 10^3/uL (1.5-6.6); NEUTROPHILS % (AUTO) 65.6 %; PLT - PLATELET COUNT 394 10^3/uL (130-450); RED BLOOD COUNT 5.52 10^6/uL (4.70-6.10); RED CELL DISTRIBUTION WIDTH 14.3 % (12.0-15.0); WHITE BLOOD COUNT 11.7 x10^3/uL (4.8-10.8)
[2021-05-16 18:28] LABS: THYROID STIMULATING HORMONE 1.8 uIU/mL (0.34-5.60)
[2021-05-16 20:31] LABS: ESTIMATED AVERAGE GLUCOSE 108 mg/dL (70-100); HEMOGLOBIN A1c% 5.4 % (4.27-6.07)
== END 2021-05-16 12:12 | disposition home or self-care (01) ==
LOC: LAB.N 12:11
PROVIDERS: ATTEND Physician Assistant
DX: Z13.9 Encounter for screening, unspecified (principal); R06.2 Wheezing; Z12.5 Encounter for screening for malignant neoplasm of prostate; D72.829 Elevated white blood cell count, unspecified; Z13.1 Encounter for screening for diabetes mellitus
CPT/HCPCS: 36415; 80053; 80061; 83036; 83880; 84443; 85025; G0103; 83721; 84153

== ENCOUNTER 2021-05-19 10:57 | Outpatient (CLI) | payer MEDICARE, OTHER ==
--- NOTE | 2021-05-19 16:13 | CT Report ---
PROCEDURE: Low Dose Lung Cancer Screen INDICATIONS: CIGARETTE SMOKER TECHNIQUE: Noncontrast low-dose images were acquired from the pulmonary apices to the posterior costophrenic ang les. Multiplanar MIP reformats were then acquired. For radiation dose reduction, the following was used: automated exposure control, adjustment of mA and/or kV according to patient size. COMPARISON: Chest CT without contrast, 02/24/2020.. FINDINGS: Image quality: Excellent. Lungs and pleura: No suspicious pulmonary nodules. Bilateral subpleural densities in upper lobes and left lower lobe are most likely scars and atelectasis. No pulmonary infiltrate or consolidation. No pleural effusion or pneumothorax. Mediastinum: Heart size is normal. No pericardial effusion. No mediastinal adenopathy by size crit eria. Thoracic aorta and central pulmonary arteries are normal in size. Esophagus is normal in werner christiano. No hiatal hernia. Bones and chest wall: No suspicious bony lesions. No vertebral body compression fractures. No axil seb or supraclavicular adenopathy by size criteria. The thyroid is normal in size and there are no incidental findings. Abdomen: Visualized upper abdomen solid organs and bowel loops appear normal in the absence of contr ast. IMPRESSION: No suspicious pulmonary nodules. ACR lung RADS category 1. Recommend annual screening lung CT in 12 months. Reviewed by: Rodrigue Luther MD on 05/19/2021 4:12 PM PST Approved by: Rodrigue Luther MD on 05/19/2021 4:12 PM PST Station ID: [id number]
== END 2021-05-19 10:58 | disposition home or self-care (01) ==
LOC: DI 10:57
PROVIDERS: ATTEND Physician Assistant
DX: Z12.2 Encounter for screening for malignant neoplasm of respiratory organs (principal); F17.210 Nicotine dependence, cigarettes, uncomplicated

== ENCOUNTER 2021-08-28 11:21 | Outpatient (CLI) | payer MEDICARE, OTHER ==
[2021-08-28 22:27] VITALS: BP 127/74
--- NOTE | 2021-08-28 22:27 | SLEEP CARE CONSULTATION ---
Information from patient questionnaire entered by Kodak Salas MA. I have reviewed and concur with the information entered by Kodak Salas MA. This document represents the service I personally performed and the decisions made by me, July Flores MD, [facility]. History of Present Illness Service Date and Time: 08/28/2021 1121 Reason for follow up: annual (LAST SEEN 09/2018, NEVAEH, SMYTH DATE 01/2017, ) HPI additional information: Mr. 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 Last visit notes reviewed. The patient said his machine broke 3 years ago but his durable medical supplier [employer] refused to replace it despite our prescription to replace/repair the device. He has not been using a CPAP since. He does not particularly want to use it because it gave him tinnitus. However, he has paroxysmal atrial fibrillation. He has lost 40+ lbs since his sleep studies in 2017. He is not sure if he continues to snore. He wakes up once during the night on the average. He is not sleepy during the day. [place] Sleepiness Scale score is 5. Subjective Initial [place] Sleepiness Scale score: 5 (08/28/2021) Allergies and Home Medications Known drug allergies: Yes (PNC) Drug allergies reviewed: Yes Home medication list reviewed: Yes Allergy and home medication list: Allergies cephalexin Allergy (Verified 01/22/19 07:24) Unknown minocycline Allergy (Verified 01/22/19 07:24) Unknown Penicillins Allergy (Verified 01/21/19 10:11) Hives terbinafine Allergy (Verified 01/22/19 07:24) Unknown testosterone Allergy (Verified 01/21/19 10:11) Hives Review of Systems Review of systems same as previous: Yes (AFIB) Physical Exam Vital signs obtained and entered by: SHERRY BENITES Blood Pressure: 127/74 (RESP 18, PULSE 62, LEFT) Cuff size: wrist Heart Rate: 61 O2 Saturation: 98 Height: 5 ft 10 in Weight: 183 lb Body Mass Index: 26.2 BMI Classification: Overweight Impression and Plan IMPRESSION: 1. Obstructive Sleep Apnea-Hypopnea Syndrome, mild, possibly resolved with weight loss. Before I restart him on the CPAP therapy, I would like to repeat the in-laboratory polysomnography. PLAN: 1. Schedule an in-laboratory polysomnography. 2. Return for follow up after the sleep study. Follow up with Sleep Care in: 1-2 months Visit Type: In Office Time Spent with Patient (minutes): 20 Provider Statement: I spent 100% of the Face to Face Visit with the patient with greater than 50% spent counseling the patient and coordination of care.
== END 2021-08-28 11:22 | disposition home or self-care (01) ==
LOC: SC 11:21
PROVIDERS: ATTEND Internal Medicine Pulmonary Disease
DX: G47.33 Obstructive sleep apnea (adult) (pediatric) (principal); E66.3 Overweight; Z68.26 Body mass index [BMI] 26.0-26.9, adult
CPT/HCPCS: 99213; G0463; 99212

== ENCOUNTER 2022-01-02 10:39 | Outpatient (CLI) | payer MEDICARE, OTHER ==
[2022-01-02 11:20] LABS: THYROID STIMULATING HORMONE 0.25 uIU/mL (0.34-5.60)
[2022-01-02 12:02] LABS: FREE T4 (FREE THYROXINE) 1.7 ng/dL (0.58-1.64)
[2022-01-02 12:03] LABS: ALBUMIN/GLOBULIN RATIO 1.4 (1.0-2.2); BILIRUBIN,TOTAL 0.7 mg/dL (0.2-1.0); CALCIUM 9.5 mg/dL (8.5-10.3); CREATININE 0.9 mg/dL (0.6-1.2); POTASSIUM 4.9 mmol/L (3.5-5.0); TOTAL PROTEIN 6.9 g/dL (6.7-8.2)
== END 2022-01-02 10:40 | disposition home or self-care (01) ==
LOC: LAB 10:39
PROVIDERS: ATTEND Internal Medicine Cardiovascular Disease
DX: I48.0 Paroxysmal atrial fibrillation (principal)
CPT/HCPCS: 36415; 80053; 84439; 84443

== ENCOUNTER 2022-02-20 09:09 | Emergency (ER) | payer MEDICARE, OTHER ==
[2022-02-20 09:45] LABS: BASOPHILS # (AUTO) 0.1 10^3/uL (0.0-0.1); BASOPHILS % (AUTO) 0.9 %; EOSINOPHILS # (AUTO) 0.1 10^3/uL (0.0-0.7); EOSINOPHILS % (AUTO) 0.6 %; HCT - HEMATOCRIT 50.2 % (42.0-52.0); HGB - HEMOGLOBIN 16.4 g/dL (14.0-18.0); LYMPHOCYTES # (AUTO) 1.2 10^3/uL (1.5-3.5); LYMPHOCYTES % (AUTO) 10.3 %; MEAN CORPUSCULAR HEMOGLOBIN 29.9 pg (27.0-31.0); MEAN CORPUSCULAR HGB CONC 32.7 g/dL (32.0-36.0); MEAN CORPUSCULAR VOLUME 91.6 fL (80.0-94.0); MONOCYTES # (AUTO) 1.1 10^3/uL (0.0-1.0); MONOCYTES % (AUTO) 9.5 %; NEUTROPHILS % (AUTO) 78.4 %; PLT - PLATELET COUNT 454 10^3/uL (130-450); RED BLOOD COUNT 5.48 10^6/uL (4.70-6.10); WHITE BLOOD COUNT 11.5 x10^3/uL (4.8-10.8)
[2022-02-20 10:00] LABS: ALBUMIN 3.6 g/dL (3.2-5.5); ALBUMIN/GLOBULIN RATIO 1.1 (1.0-2.2); BILIRUBIN,TOTAL 0.4 mg/dL (0.2-1.0); CALCIUM 9.2 mg/dL (8.5-10.3); CREATININE 0.8 mg/dL (0.6-1.2); POTASSIUM 3.9 mmol/L (3.5-5.0); TOTAL PROTEIN 6.9 g/dL (6.7-8.2)
[2022-02-20 11:08] LABS: GLUCOSE, URINE (UA) NEGATIVE (NEGATIVE); KETONES,URINE (UA) NEGATIVE (NEGATIVE); LEUKOCYTE ESTERASE, URINE NEGATIVE (NEGATIVE); NITRITE,URINE NEGATIVE (NEGATIVE); OCCULT BLOOD,URINE NEGATIVE (NEGATIVE); PROTEIN,URINE TRACE mg/dL (NEGATIVE); UROBILINOGEN,URINE 0.2 (NORMAL) E.U./dL (NORMAL)
[2022-02-20 11:27] LABS: BILIRUBIN,URINE NEGATIVE (NEGATIVE); CLARITY,URINE CLEAR (CLEAR); ICTOTEST,URINE NEGATIVE
[2022-02-20] MEDS ORDERED: iohexoL-300 100 ML VIAL ONE (12:38)
--- NOTE | 2022-02-20 12:41 | ED Physician Documentation ---
History of Present Illness - Stated complaint Stated Complaint: MALE GI/RT LEG PX - Chief complaint Chief Complaint: Abd Pain - History obtained from History obtained from: Patient - History of Present Illness Timing: How many weeks ago (3) Pain level max: 5 Pain level now: 4 - Additonal information Additional information: Patient is a 61-year-old male who presents to the emergency department with several complaints. The first is intermittent abdominal pain after eating for the past 3 to 4 weeks. Described as low, cramping. He states that after his food digest for about "18 hours" it comes out "black". No nausea or vomiting. Has not had similar symptoms previously. Nothing makes it better or worse. No fevers. No chills. Patient also states he has been having right posterior thigh pain for the past 3 to 4 days. Worse with walking, better with rest. Does not recall any injury. States it feels better when he rubs the back of his thigh. States it feels like a pulled muscle. Has not had any swelling in the legs. Patient also states that he has had rhinorrhea and congestion for the past se veral weeks. He has been using Afrin to help decongest himself. No fevers. No chills. No cough. Review of Systems Constitutional: denies: Fever, Chills Respiratory: denies: Cough GI: reports: Bloody / black stool (Reports dark stools). denies: Nausea, Vomiting, Hematemesis : denies: Dysuria Skin: denies: Rash Musculoskeletal: denies: Neck pain, Back pain Neurologic: denies: Headache PD PAST MEDICAL HISTORY - Past Medical History Past Medical History: Yes Cardiovascular: Atrial fibrillation Respiratory: Asthma Endocrine/Autoimmune: None : None Psych: Depression Musculoskeletal: Chronic back pain Derm: None - Past Surgical History Past Surgical History: Yes General: Appendectomy Ortho: Other - Present Medications Home Medications: Ambulatory Orders Medication Instructions Recorded Confirmed Apixaban [Eliquis] 1 tab PO BID 10/01/17 02/20/22 Albuterol Sulf [Ventolin Hfa 1 - 2 puffs INH Q4HR PRN 02/20/22 02/20/22 Inhaler] Amiodarone [Pacerone] 200 mg PO DAILY 02/20/22 02/20/22 Cefdinir 300 mg PO BID #20 cap 02/20/22 Fluticasone/Salmeterol [Advair 1 each IH BID 02/20/22 02/20/22 500-50 Diskus] Oxycodone HCl/Acetaminophen 1 - 2 each PO Q6H PRN #10 tablet 02/20/22 [Percocet 5-325 mg Tablet] MDD 6 tabs carvediloL [Coreg] 3.125 mg PO BID 02/20/22 02/20/22 metroNIDAZOLE [Flagyl] 500 mg PO Q8HR #30 tablet 02/20/22 - Allergies Allergies/Adverse Reactions: Allergies Allergy/AdvReac Type Severity Reaction Status Date / Time cephalexin Allergy Unknown Verified 02/20/22 09:18 minocycline Allergy Unknown Verified 02/20/22 09:18 Penicillins Allergy Hives Verified 02/20/22 09:18 terbinafine Allergy Unknown Verified 02/20/22 09:18 testosterone Allergy Hives Verified 02/20/22 09:18 - Social History Does the pt smoke?: No Smoking Status: Never smoker - Immunizations Immunizations are current?: Yes PD ED PE NORMAL - Vitals Vital signs reviewed: Yes - General General: Alert and oriented X 3, No acute distress, Well developed/nourished - HEENT HEENT: PERRL, Ears normal, Moist mucous membranes, Pharynx benign - Neck Neck: Supple, no meningeal sign, No adenopathy - Cardiac Cardiac: RRR, No murmur, Strong equal pulses - Respiratory Respiratory: No respiratory distress, Clear bilaterally - Abdomen Abdomen: Normal bowel sounds, Soft, Non tender, Non distended - Back Back: No spinal TTP - Derm Derm: Warm and dry - Extremities Extremities: No edema, No calf tenderness / cord, Other (Mild tenderness to palpation over the posterior right calf. No swelling. No skin changes. Feels better with stretching. Full range of motion of the hip without pain. nvi) - Neuro Neuro: Alert and oriented X 3 - Psych Psych: Normal mood, Normal affect Results - Vitals Vitals: Oxygen O2 Source Room air - Labs Labs: Microbiology 02/20/22 11:01 Occult Blood - Final Stool Laboratory Tests 02/20/22 02/20/22 02/20/22 09:40 09:40 10:59 WBC 11.5 H RBC 5.48 Hgb 16.4 Hct 50.2 MCV 91.6 MCH 29.9 MCHC 32.7 RDW 14.0 Plt Count 454 H MPV 10.0 Neut # (Auto) 9.0 H Lymph # (Auto) 1.2 L [place] # (Auto) 1.1 H Eos # (Auto) 0.1 Baso # (Auto) 0.1 Absolute Nucleated RBC 0.00 Nucleated RBC % 0.0 Sodium 142 Potassium 3.9 Chloride 104 Carbon Dioxide 28 Anion Gap 10.0 BUN 11 Creatinine 0.8 Estimated GFR (MDRD) 98 Glucose 99 Calcium 9.2 Total Bilirubin 0.4 AST 23 ALT 15 Alkaline Phosphatase 52 Total Protein 6.9 Albumin 3.6 Globulin 3.3 Albumin/Globulin Ratio 1.1 Lipase 35 Urine Color YELLOW Urine Clarity CLEAR Urine pH 6.0 Ur Specific [place] >=1.030 H Urine Protein TRACE Urine Glucose (UA) NEGATIVE Urine Ketones NEGATIVE Urine Occult Blood NEGATIVE Urine Nitrite NEGATIVE Urine Bilirubin NEGATIVE Urine Urobilinogen 0.2 (NORMAL) Ur Leukocyte Esterase NEGATIVE Ur Microscopic Review NOT INDICATED Urine Culture Comments NOT INDICATED - Rads (name of study) R femur xray Radiology: Final report received, EMP read contemporaneously, See rad report CT abdomen pelvis Radiology: Final report received, EMP read contemporaneously, See rad report PD MEDICAL DECISION MAKING - ED course Complexity details: reviewed results, re-evaluated patient, considered differential, d/w patient ED course: 61-year-old male with acute diverticulitis on CT scan. He states he had a normal colonoscopy 8 months ago. This would make colon cancer less likely. We discussed risks and benefits of antibiotics and how they may not be needed for treatment of diverticulitis, he does elect antibiotics at this time. Patient also requests pain medication for his hip and for the diverticulitis. No acute findings on x-ray of the right femur. Ambulating without difficulty. Patient is well-appearing, nontoxic. Afebrile. No evidence of perforation or abscess. Patient counseled regarding signs and symptoms for which I believe and urgent re-evaluation would be necessary. Patient with good understanding of and agreement to plan and is comfortable going home at this time This document was made in part using voice recognition software. While efforts are made to proofread this document, sound alike and grammatical errors may occur. Departure - Departure Disposition: 01 Home, Self Care Clinical Impression: Diverticulitis Hamstring strain Qualifiers: Encounter type: initial encounter Laterality: right Qualified Code(s): S76.311A - Strain of muscle, fascia and tendon of the posterior muscle group at thigh level, right thigh, initial encounter Condition: Good Instructions: ED Diverticulitis Follow-Up: Brenna Garner PA [Primary Care Provider] - Within 1 week Prescriptions: metroNIDAZOLE [Flagyl] 500 mg PO Q8HR #30 tablet Cefdinir 300 mg PO BID #20 cap Oxycodone HCl/Acetaminophen [Percocet 5-325 mg Tablet] 1 - 2 each PO Q6H PRN #10 tablet MDD 6 tabs PRN Reason: pain Comments: [facility] in [place]. Please follow-up with your doctor for further care. Please return if you worsen. The CT scan mentions a colonoscopy, your doctor may want to have this done after your antibiotic course is finished. Please take all antibiotics until gone. Your CT scan results are below: ABDOMEN: Lung bases: Lung bases are clear. Heart size is normal. Solid organs: Liver and spleen are normal in size and enhancement. Gallbladder is normal. Biliary system is non dilated. Pancreas enhances normally. No adrenal nodules. Kidneys demonstrate normal size and enhancement, without hydronephrosis. Peritoneum and bowel: There is wall thickening of the sigmoid colon with diverticula and in the distal sigmoid colon to the right there is surrounding inflammation consistent with acute diverticulitis. No free fluid or air. Nodes and vessels: No retroperitoneal or mesenteric adenopathy by size criteria. Aorta and inferior vena cava are normal in size. Miscellaneous: No ventral hernias. PELVIS: Genitourinary: Bladder wall thickness is normal. Miscellaneous: No inguinal hernias or adenopathy. Bones: No suspicious bony lesions. No vertebral body compression fractures. IMPRESSION: 1. Acute diverticulitis in the distal sigmoid colon with no evidence of perforation or abscess. 2. Circumferential wall thickening of the sigmoid colon could be due to chronic diverticulosis, however the circumferential segment of thickening has a concerning appearance for neoplasm. Recommend colonoscopy when clinically appropriate. I am prescribing a short course of narcotic pain medication for you. These are potentially dangerous and addictive medications that should be used carefully. These medications may constipate you. Take an jydh-tzv-qdulywo stool softener (docusate) twice daily with plenty of water while taking these medications. If you go 24 hours without a bowel movement, take bdzy-flo-bsbwbgo miralax, per package instructions. Do not drink or drive while taking these medications. If you received narcotic or sedating medications while in the emergency department, do not drive for 24 hours. Store this medication in a safe, secure place and out of reach of children. It is a violation of federal law to give or sell this medication to another person or to use in a manner other than prescribed. The ED will not refill narcotic prescriptions, including prescriptions lost or stolen. To dispose of unwanted medications: 1. [facility] [address] in [place] has a medication drop box. They accept prescription medications (in pill form) Saturday through Saturday 9:00 a.m. to 5:00 p.m. 2. The [facility] Police Department accepts prescription medications (in pill form only) for disposal year round. Call for more information. 3. Contact the [facility] for the next [facility] sponsored prescription drug collection event. , [phone], or [phone]; Discharge Date/Time: 02/20/22 14:31
--- NOTE | 2022-02-20 12:56 | XRAY Report ---
PROCEDURE: Femur 2V RT INDICATIONS: R thigh pain, no injury TECHNIQUE: 4 views of the femur were acquired. COMPARISON: None. FINDINGS: Bones: No fractures or dislocations. Right hip and right knee joint osteoarthritic changes are seen . No evidence of avascular necrosis of femoral head. No suspicious bony lesions. Soft tissues: No suspicious soft tissue calcifications or masses. IMPRESSION: No right femoral fracture or dislocation. 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 No evidence of avascular necrosis. No gross soft tissue abnormalities. Reviewed by: Glen De La Torre MD on 02/20/2022 12:55 PM PST Approved by: Glen De La Torre MD on 02/20/2022 12:55 PM PST Station ID: [id number]
[2022-02-20 12:58] VITALS: BP 167/95
--- NOTE | 2022-02-20 13:54 | CT Report ---
PROCEDURE: ABDOMEN/PELVIS W INDICATIONS: LLQ abd pain, melena CONTRAST: 100ml Omnipaque 300 TECHNIQUE: After the administration of contrast, 5 mm thick sections acquired from the diaphragms to the sym physis. 5 mm thick coronal and sagittal reformats were acquired. For radiation dose reduction, the following was used: automated exposure control, adjustment of mA and/or kV according to patient size . COMPARISON: 05/25/2016 FINDINGS: Image quality: Excellent. ABDOMEN: Lung bases: Lung bases are clear. Heart size is normal. Solid organs: Liver and spleen are normal in size and enhancement. Gallbladder is normal. Biliary system is non dilated. Pancreas enhances normally. No adrenal nodules. Kidneys demonstrate normal size and enhancement, without hydronephrosis. Peritoneum and bowel: There is wall thickening of the sigmoid colon with diverticula and in the dista l sigmoid colon to the right there is surrounding inflammation consistent with acute diverticulitis. No free fluid or air. Nodes and vessels: No retroperitoneal or mesenteric adenopathy by size criteria. Aorta and inferior vena cava are normal in size. Miscellaneous: No ventral hernias. PELVIS: Genitourinary: Bladder wall thickness is normal. Miscellaneous: No inguinal hernias or adenopathy. Bones: No suspicious bony lesions. No vertebral body compression fractures. IMPRESSION: 1. Acute diverticulitis in the distal sigmoid colon with no evidence of perforation or abscess. 2. Circumferential wall thickening of the sigmoid colon could be due to chronic diverticulosis, howev er the circumferential segment of thickening has a concerning appearance for neoplasm. Recommend colo noscopy when clinically appropriate. Reviewed by: Alton Geronimo on 02/20/2022 1:53 PM [facility] Approved by: Alton Geronimo on 02/20/2022 1:53 PM PST Station ID: [id number]
[2022-02-20] MEDS ORDERED: iohexoL-300 100 ML VIAL IVP ONE (14:23)
== END 2022-02-20 14:31 | disposition home or self-care (01) ==
LOC: ED 09:09
DX: K57.32 Diverticulitis of large intestine without perforation or abscess without bleeding (principal); S76.311A Strain of muscle, fascia and tendon of the posterior muscle group at thigh level, right thigh, initial encounter; X58.XXXA Exposure to other specified factors, initial encounter
CPT/HCPCS: 36415; 73552; 74177; 80053; 81003; 82272; 83690; 85025; 99284; Q9967; 81001; 87086

== ENCOUNTER 2022-03-02 12:30 | Emergency (ER) | payer MEDICARE, OTHER ==
[2022-03-02] MEDS ORDERED: iohexoL-300 100 ML VIAL ONE (13:16)
[2022-03-02 13:25] LABS: BASOPHILS # (AUTO) 0.1 10^3/uL (0.0-0.1); BASOPHILS % (AUTO) 0.8 %; EOSINOPHILS # (AUTO) 0.1 10^3/uL (0.0-0.7); EOSINOPHILS % (AUTO) 0.7 %; HCT - HEMATOCRIT 49.3 % (42.0-52.0); LYMPHOCYTES # (AUTO) 2.1 10^3/uL (1.5-3.5); LYMPHOCYTES % (AUTO) 24.4 %; MEAN CORPUSCULAR HEMOGLOBIN 30.1 pg (27.0-31.0); MEAN CORPUSCULAR HGB CONC 32.5 g/dL (32.0-36.0); MEAN CORPUSCULAR VOLUME 92.8 fL (80.0-94.0); MEAN PLATELET VOLUME 10.1 fL (7.4-11.4); MONOCYTES # (AUTO) 0.8 10^3/uL (0.0-1.0); NEUTROPHILS # (AUTO) 5.6 10^3/uL (1.5-6.6); NEUTROPHILS % (AUTO) 64.9 %; PLT - PLATELET COUNT 397 10^3/uL (130-450); RED BLOOD COUNT 5.31 10^6/uL (4.70-6.10); RED CELL DISTRIBUTION WIDTH 14.3 % (12.0-15.0); WHITE BLOOD COUNT 8.7 x10^3/uL (4.8-10.8)
[2022-03-02 13:34] LABS: ALBUMIN 3.9 g/dL (3.2-5.5); ALBUMIN/GLOBULIN RATIO 1.4 (1.0-2.2); BILIRUBIN,TOTAL 0.4 mg/dL (0.2-1.0); CREATININE 0.9 mg/dL (0.6-1.2); TOTAL PROTEIN 6.7 g/dL (6.7-8.2)
[2022-03-02] MEDS ORDERED: iohexoL-300 100 ML VIAL IVP ONE (14:04)
--- NOTE | 2022-03-02 14:17 | CT Report ---
PROCEDURE: ABDOMEN/PELVIS W INDICATIONS: IV only, Low abd pain CONTRAST: 100mL [id number] TECHNIQUE: After the administration of intravenous contrast, 5 mm thick sections acquired from the diaphragms to the symphysis. 5 mm thick coronal and sagittal reformats were acquired. For radiation dose reducti on, the following was used: automated exposure control, adjustment of mA and/or kV according to rebeca ent size. COMPARISON: 02/20/2022 FINDINGS: Image quality: Excellent. ABDOMEN: Lung bases: Lung bases are clear. Heart size is normal. Solid organs: Liver and spleen are normal in size and enhancement. Gallbladder is unremarkable with out calcified gallstones. Biliary system is non dilated. Pancreas enhances normally. No adrenal no dules. Kidneys demonstrate normal size and enhancement, without hydronephrosis. Peritoneum and bowel: Again noted is acute uncomplicated diverticulitis of the distal sigmoid colon. No free air or abscess cavity. No free fluid or air. Nodes and vessels: No retroperitoneal or mesenteric adenopathy by size criteria. Aorta and inferior vena cava are normal in size. Miscellaneous: No ventral hernias. PELVIS: Genitourinary: Bladder wall thickness is normal. Miscellaneous: No inguinal hernias or adenopathy. Bones: No suspicious bony lesions. No vertebral body compression fractures. Lumbar degenerative ch mauro. IMPRESSION: 1. No significant interval change. Findings consistent with acute uncomplicated distal sigmoid divert iculitis. Reviewed by: Ivan Rosas MD on 03/02/2022 2:16 PM PST Approved by: Ivan Rosas MD on 03/02/2022 2:16 PM PST Station ID: [id number]
--- NOTE | 2022-03-02 14:22 | ED Physician Documentation ---
PD HPI ABD PAIN - Stated complaint Stated Complaint: MALE - Chief complaint Chief Complaint: Abd Pain - History obtained from History obtained from: Patient - Additional information Additional information: 61-year-old gentleman saw my partner about 10 days ago for diverticulitis. Was started on cefdinir and Flagyl. Since then he has improved only very slightly but still has significant left lower quadrant pain radiating up into the right especially after eating. He notes maroon stools. He was sent from the clinic where it was felt that he was quite tender. Review of Systems Constitutional: reports: Reviewed and negative Cardiac: reports: Reviewed and negative Respiratory: reports: Reviewed and negative PD PAST MEDICAL HISTORY - Past Medical History Cardiovascular: Atrial fibrillation Respiratory: Asthma Neuro: None Endocrine/Autoimmune: None GI: Ulcers : None HEENT: None Psych: Depression Musculoskeletal: Chronic back pain Derm: None - Past Surgical History Past Surgical History: Yes General: Appendectomy Ortho: Other - Present Medications Home Medications: Ambulatory Orders Medication Instructions Recorded Confirmed Apixaban [Eliquis] 1 tab PO BID 10/01/17 02/20/22 Albuterol Sulf [Ventolin Hfa 1 - 2 puffs INH Q4HR PRN 02/20/22 02/20/22 Inhaler] Amiodarone [Pacerone] 200 mg PO DAILY 02/20/22 02/20/22 Cefdinir 300 mg PO BID #20 cap 02/20/22 Fluticasone/Salmeterol [Advair 1 each IH BID 02/20/22 02/20/22 500-50 Diskus] Oxycodone HCl/Acetaminophen 1 - 2 each PO Q6H PRN #10 tablet 02/20/22 [Percocet 5-325 mg Tablet] MDD 6 tabs carvediloL [Coreg] 3.125 mg PO BID 02/20/22 02/20/22 metroNIDAZOLE [Flagyl] 500 mg PO Q8HR #30 tablet 02/20/22 Ciprofloxacin HCl [Cipro] 500 mg PO BID #20 tablet 03/02/22 HYDROcod/ACETAM 5/325 [[place] 5/325] 1 - 2 tab PO Q6H PRN #15 tablet 03/02/22 metroNIDAZOLE [Flagyl] 500 mg PO TID 10 Days #30 tablet 03/02/22 - Allergies Allergies/Adverse Reactions: Allergies Allergy/AdvReac Type Severity Reaction Status Date / Time cephalexin Allergy Unknown Verified 03/02/22 12:54 minocycline Allergy Unknown Verified 03/02/22 12:54 Penicillins Allergy Hives Verified 03/02/22 12:54 terbinafine Allergy Unknown Verified 03/02/22 12:54 testosterone Allergy Hives Verified 03/02/22 12:54 - Social History Does the pt smoke?: No Smoking Status: Never smoker Does the pt drink ETOH?: Yes Does the pt have substance abuse?: Yes - Immunizations Immunizations are current?: Yes PD ED PE NORMAL - Vitals Vital signs reviewed: Yes - General General: Alert and oriented X 3, No acute distress - Cardiac Cardiac: Other (Irregularly irregular) - Abdomen Abdomen: Normal bowel sounds, Soft, Other (for me he has normal bowel sounds with a soft completely nontender abdomen.) - Derm Derm: Normal color, Warm and dry - Neuro Neuro: Alert and oriented X 3, Normal speech Results - Vitals Vitals: Vital Signs - 24 hr 03/02/22 12:50 Temperature 37.0 C Heart Rate 61 Respiratory 24 Rate Blood Pressure 116/76 O2 Saturation 96 Oxygen O2 Source Room air - Labs Labs: Laboratory Tests 03/02/22 03/02/22 13:15 13:15 WBC 8.7 RBC 5.31 Hgb 16.0 Hct 49.3 MCV 92.8 MCH 30.1 MCHC 32.5 RDW 14.3 Plt Count 397 MPV 10.1 Neut # (Auto) 5.6 Lymph # (Auto) 2.1 [place] # (Auto) 0.8 Eos # (Auto) 0.1 Baso # (Auto) 0.1 Absolute Nucleated RBC 0.00 Nucleated RBC % 0.0 Sodium 142 Potassium 4.5 Chloride 106 Carbon Dioxide 30 Anion Gap 6.0 BUN 12 Creatinine 0.9 Estimated GFR (MDRD) 86 L Glucose 90 Calcium 9.3 Total Bilirubin 0.4 AST 18 ALT 21 Alkaline Phosphatase 43 Total Protein 6.7 Albumin 3.9 Globulin 2.8 Albumin/Globulin Ratio 1.4 Lipase 50 - Rads (name of study) CT abdomen pelvis with unchanged diverticulitis Radiology: Final report received, EMP read indepedently PD Medical Decision Making - ED course Reviewed Lab Results: CBC is normal, CMP is normal ED course: 61-year-old gentleman with diverticulitis on CT, has not resolved with cefdinir and Flagyl. We will change him over to Cipro and Flagyl, not many other options given his allergy list. Discussed need for follow-up colonoscopy and dietary changes while ill. He needed something for pain and also requested clonazepam, discussed with him that I would be happy to prescribe 1 or the other, but not both simultaneously due to potential interaction. Departure - Departure Disposition: 01 Home, Self Care Clinical Impression: Diverticulitis Condition: Good Record reviewed to determine appropriate education?: Yes Instructions: Diet Low Residue, ED Diverticulitis Prescriptions: Ciprofloxacin HCl [Cipro] 500 mg PO BID #20 tablet metroNIDAZOLE [Flagyl] 500 mg PO TID 10 Days #30 tablet HYDROcod/ACETAM 5/325 [[place] 5/325] 1 - 2 tab PO Q6H PRN #15 tablet PRN Reason: Pain Comments: I sent your prescriptions electronically to [facility] in [place]. Clear liquid diet for the next 24 hours, after that low residue diet with things like broth, Jell-O, white rice and scrambled eggs for another 2 days. Return if worse. Follow-up with your primary care physician, consider repeat colonoscopy in 60 weeks. I am prescribing a short course of narcotic pain medication for you. These are potentially dangerous and addictive medications that should be used carefully. These medications may constipate you. Take an plrp-yjt-ssspoic stool softener (docusate) twice daily with plenty of water while taking these medications. If you go 24 hours without a bowel movement, take evsw-cuy-qwrhfyz miralax, per package instructions. Do not drink or drive while taking these medications. If you received narcotic or sedating medications while in the emergency department, do not drive for 24 hours. Store this medication in a safe, secure place and out of reach of children. It is a violation of federal law to give or sell this medication to another person or to use in a manner other than prescribed. The ED will not refill narcotic prescriptions, including prescriptions lost or stolen. To dispose of unwanted medications: 1. [facility] at [address] in [place] has a medication drop box. They accept prescription medications (in pill form) Saturday through Saturday 9:00 a.m. to 5:00 p.m. 2. The [facility] Police Department accepts prescription medications (in pill form only) for disposal year round. Call for more information. 3. Contact the [facility] for the next [facility] sponsored prescription drug collection event. , [phone], or [phone]; Note that many narcotic pain relievers also contain Tylenol/acetaminophen. Please ensure that your total dose of acetaminophen from all sources does not exceed 3 g (3000 mg) per day.
[2022-03-02 14:37] LABS: CALCIUM 9.3 mg/dL (8.5-10.3); POTASSIUM 4.5 mmol/L (3.5-5.0)
[2022-03-02 15:00] VITALS: BP 125/79
== END 2022-03-02 15:01 | disposition home or self-care (01) ==
LOC: ED 12:30
DX: K57.92 Diverticulitis of intestine, part unspecified, without perforation or abscess without bleeding (principal); I48.91 Unspecified atrial fibrillation; Z79.01 Long term (current) use of anticoagulants
CPT/HCPCS: 36415; 74177; 80053; 83690; 85025; 99284; Q9967

== ENCOUNTER 2022-04-11 09:57 | Outpatient (CLI) | payer MEDICARE, OTHER ==
[2022-04-11 10:44] LABS: T4 (THYROXINE) 10.07 ug/dL (6.09-12.23)
[2022-04-11 10:48] LABS: THYROID STIMULATING HORMONE 0.48 uIU/mL (0.34-5.60)
[2022-04-11 10:50] LABS: FREE T4 (FREE THYROXINE) 1.47 ng/dL (0.58-1.64)
[2022-04-12 16:08] LABS: THYROGLOBULIN ANTIBODY <1.0 IU/mL (0.0-0.9)
== END 2022-04-11 09:58 | disposition home or self-care (01) ==
LOC: LAB 09:57
PROVIDERS: ATTEND Surgery
DX: E04.2 Nontoxic multinodular goiter (principal); R76.0 Raised antibody titer; Z13.29 Encounter for screening for other suspected endocrine disorder; R94.6 Abnormal results of thyroid function studies; R70.0 Elevated erythrocyte sedimentation rate
CPT/HCPCS: 36415; 84436; 84439; 84443; 84480; 85651; 86140; 86376; 86800

== ENCOUNTER 2022-04-13 22:38 | Outpatient (CLI) | payer MEDICARE, OTHER ==
--- NOTE | 2022-04-14 03:17 | Ultrasound Report ---
PROCEDURE: Head or Neck Soft Tissue INDICATIONS: BULGING EYES, FINE TREMOR, INSOMIA TECHNIQUE: Real time scanning was performed of the thyroid, with image documentation. COMPARISON: Ultrasound neck 02/24/2020. FINDINGS: Right: The right lobe measures 4.2 x 2.0 x 1.8 cm and appears homogeneous. No discrete nodule identi fied. Left: The left lobe measures 4.4 x 2.0 x 1.6 cm and appears homogeneous. No discrete nodule identifi ed. Isthmus: The isthmus measures up to 0.6 cm. IMPRESSION: 1. No discrete thyroid nodule identified. Reviewed by: Patric Mast MD on 04/14/2022 3:16 AM PST Approved by: Patric Mast MD on 04/14/2022 3:16 AM PST Station ID: [id number]
== END 2022-04-13 22:39 | disposition home or self-care (01) ==
LOC: DI 22:38
PROVIDERS: ATTEND Surgery
DX: R25.1 Tremor, unspecified (principal); H05.20 Unspecified exophthalmos; R63.4 Abnormal weight loss; L65.9 Nonscarring hair loss, unspecified

== ENCOUNTER 2022-05-15 06:36 | Day surgery (SDC) | payer MEDICARE, OTHER ==
--- NOTE | 2022-05-15 06:51 | ANESTHESIA ---
Pre-Anesthesia VS, & Labs - Diagnosis screening - Procedure colonoscopy Height: 5 ft 10 in - NPO Last Fluid Intake: am prep - Lab Results Lab results reviewed: Yes Home Medications and Allergies Apixaban [Eliquis] 1 tab PO BID 10/01/17 Albuterol Sulf [Ventolin Hfa Inhaler] 1 - 2 puffs INH Q4HR PRN 02/20/22 Amiodarone [Pacerone] 200 mg PO DAILY 02/20/22 Fluticasone/Salmeterol [Advair 500-50 Diskus] 1 each IH BID 02/20/22 carvediloL [Coreg] 3.125 mg PO BID 02/20/22 Allergies/Adverse Reactions: Allergies Allergy/AdvReac Type Severity Reaction Status Date / Time cephalexin Allergy Unknown Verified 05/15/22 07:15 minocycline Allergy Unknown Verified 05/15/22 07:15 Penicillins Allergy Hives Verified 05/15/22 07:15 terbinafine Allergy Unknown Verified 05/15/22 07:15 testosterone Allergy Hives Verified 05/15/22 07:15 Anes History & Medical History - Anesthetic History Anesthesia Complications: reports: No previous complications Family history of Anesthesia Complications: Denies Family history of Malignant Hyperthermia: Denies - Medical History Cardiovascular: reports: Atrial fibrillation Pulmonary: reports: Asthma Gastrointestinal: reports: Ulcers Urinary: reports: None Neuro: reports: None Musculoskeletal: reports: Chronic back pain Endocrine/Autoimmune: reports: None Blood Disorders: reports: None Skin: reports: None Smoking Status: Never smoker - Surgical History General: reports: Appendectomy Orthopedic: reports: Other Exam General: Alert, Oriented x3, Cooperative Dental: WNL Mouth Openin Fingerbreadth Neck Mobility: Normal Mallampati classification: II Respiratory: No respiratory distress, Wheezing Cardiovascular: Regular rate (hx AF) Neurological: Normal speech Mental/Cognitive Status: Alert/Oriented X3, Normal for patient Cognitive Status: Within normal limits Plan Anesthesia Type: Total IV Consent for Procedure(s) Verified and Reviewed: Yes Code Status: Attempt Resuscitation ASA classification: 3-Severe systemic disease Is this case an emergency?: No
[2022-05-15] MEDS ORDERED: MIDAZOLAM 2 MG/2 ML VIAL ONE (07:03)
[2022-05-15] MEDS ORDERED: PROPOFOL 500 MG/50 ML 500 MG/50 ML VIAL ONE (07:04)
[2022-05-15] MEDS ORDERED: LACTATED RINGERS 1,000 ML IV ONE (07:06)
[2022-05-15] MEDS ORDERED: LIDOCAINE-PF 2% 10 ML AMP SUBQ ONE (07:20)
[2022-05-15] MEDS ORDERED: LACTATED RINGERS 400 ML IV ONE (08:06)
[2022-05-15 08:26] VITALS: BP 128/85
--- NOTE | 2022-05-15 08:44 | ANESTHESIA POST OP EVALUATION ---
Anesthesia Post Eval - Post Anesthesia Eval Vitals: Last Vital Signs Temp 36.8 C 05/15/22 08:26 Pulse 73 05/15/22 08:26 Resp 20 05/15/22 08:26 BP 128/85 H 05/15/22 08:26 Pulse Ox 94 05/15/22 08:26 O2 Flow Rate 0 05/15/22 07:07 CV Function Including HR & BP: Stable Pain Control: Satisfactory Nausea & Vomiting: Negative Mental Status: Baseline Respiratory Status: Airway Patent Hydration Status: Satisfactory Anesthesia Complications: None
== END 2022-05-15 06:37 | disposition home or self-care (01) ==
LOC: SDS 06:36
PROVIDERS: ATTEND Surgery
PROC: 0DBN8ZZ Excision of Sigmoid Colon, Via Natural or Artificial Opening Endoscopic (ICD-10-PCS; principal; 2022-05-15 07:30)
DX: R10.32 Left lower quadrant pain (principal); D12.5 Benign neoplasm of sigmoid colon; K56.699 Other intestinal obstruction unspecified as to partial versus complete obstruction; R63.4 Abnormal weight loss; I48.91 Unspecified atrial fibrillation; F17.210 Nicotine dependence, cigarettes, uncomplicated; R19.7 Diarrhea, unspecified; K64.8 Other hemorrhoids; G47.30 Sleep apnea, unspecified; Z79.01 Long term (current) use of anticoagulants
CPT/HCPCS: 45380; 45385; J7120

== ENCOUNTER 2022-05-21 12:11 | Outpatient (CLI) | payer MEDICARE, OTHER ==
[2022-05-21 13:06] LABS: THYROID STIMULATING HORMONE 1.93 uIU/mL (0.34-5.60)
[2022-05-21 13:08] LABS: FREE T4 (FREE THYROXINE) 1.37 ng/dL (0.58-1.64)
== END 2022-05-21 12:12 | disposition home or self-care (01) ==
LOC: LAB 12:11
PROVIDERS: ATTEND Internal Medicine Cardiovascular Disease
DX: I48.0 Paroxysmal atrial fibrillation (principal)
CPT/HCPCS: 36415; 84439; 84443

== ENCOUNTER 2022-07-05 12:40 | Outpatient (CLI) | payer MEDICARE, OTHER ==
--- NOTE | 2022-07-05 17:56 | XRAY Report ---
PROCEDURE: Sinus Complete INDICATIONS: SINUSITIS TECHNIQUE: 3 views of the sinuses were acquired. COMPARISON: None FINDINGS: Sinuses: The visualized sinuses demonstrate no air-fluid levels or mucosal thickening. The visualiz ed mastoids also appear clear. Bones: No suspicious bony lesions. Nasal septum is midline. IMPRESSION: Normal paranasal sinus radiographs Reviewed by: Tutu Sommer MD on 07/05/2022 4:55 PM KAILA Approved by: Tutu Sommer MD on 07/05/2022 4:55 PM [place] Station ID: [id number]
== END 2022-07-05 12:41 | disposition home or self-care (01) ==
LOC: DI 12:40
PROVIDERS: ATTEND Family Medicine
DX: J32.9 Chronic sinusitis, unspecified (principal)

== ENCOUNTER 2022-11-26 14:14 | Emergency (ER) | payer MEDICARE, OTHER ==
[2022-11-26 14:54] LABS: BASOPHILS # (AUTO) 0.1 10^3/uL (0.0-0.1); BASOPHILS % (AUTO) 1.1 %; EOSINOPHILS # (AUTO) 0.1 10^3/uL (0.0-0.7); EOSINOPHILS % (AUTO) 0.5 %; HCT - HEMATOCRIT 46.6 % (42.0-52.0); HGB - HEMOGLOBIN 15.4 g/dL (14.0-18.0); LYMPHOCYTES # (AUTO) 1.8 10^3/uL (1.5-3.5); LYMPHOCYTES % (AUTO) 19.2 %; MEAN CORPUSCULAR HEMOGLOBIN 30.9 pg (27.0-31.0); MEAN CORPUSCULAR VOLUME 93.4 fL (80.0-94.0); MEAN PLATELET VOLUME 10.4 fL (7.4-11.4); MONOCYTES # (AUTO) 1.4 10^3/uL (0.0-1.0); MONOCYTES % (AUTO) 15.6 %; NEUTROPHILS # (AUTO) 5.8 10^3/uL (1.5-6.6); NEUTROPHILS % (AUTO) 63.4 %; PLT - PLATELET COUNT 350 10^3/uL (130-450); RED BLOOD COUNT 4.99 10^6/uL (4.70-6.10); RED CELL DISTRIBUTION WIDTH 13.7 % (12.0-15.0); WHITE BLOOD COUNT 9.1 x10^3/uL (4.8-10.8)
[2022-11-26 15:26] LABS: ALBUMIN 3.7 g/dL (3.2-5.5); ALBUMIN/GLOBULIN RATIO 1.5 (1.0-2.2); BILIRUBIN,TOTAL 0.3 mg/dL (0.2-1.0); CALCIUM 9.2 mg/dL (8.5-10.3); CREATININE 0.8 mg/dL (0.6-1.3); POTASSIUM 3.8 mmol/L (3.5-4.5); TOTAL PROTEIN 6.1 g/dL (6.4-8.9)
[2022-11-26 16:58] LABS: BILIRUBIN,URINE NEGATIVE (NEGATIVE); GLUCOSE, URINE (UA) NEGATIVE (NEGATIVE); KETONES,URINE (UA) TRACE mg/dL (NEGATIVE); LEUKOCYTE ESTERASE, URINE NEGATIVE (NEGATIVE); NITRITE,URINE NEGATIVE (NEGATIVE); OCCULT BLOOD,URINE NEGATIVE (NEGATIVE); PH,URINE 6.5 PH (5.0-7.5); PROTEIN,URINE NEGATIVE (NEGATIVE); UROBILINOGEN,URINE 0.2 (NORMAL) E.U./dL (NORMAL)
[2022-11-26 17:00] LABS: CLARITY,URINE CLEAR (CLEAR)
[2022-11-26 17:18] VITALS: BP 142/77; O2SAT 98
--- NOTE | 2022-11-26 17:28 | ED Physician Documentation ---
History of Present Illness - Stated complaint Stated Complaint: ABD PX/GI - Chief complaint Chief Complaint: Abd Pain - History obtained from History obtained from: Patient - History of Present Illness Pain level max: 5 Pain level now: 5 - Additonal information Additional information: 61-year-old male complains of intermittent lower abdominal pain for the past 9 to 12 months. He states that he has not really talked to his doctor about this but when he told them about the pain today they sent him to the emergency department. He states that he had a colonoscopy about a year ago and he believes that was normal. He states he has had dark stools but does not feel lightheaded or dizzy. He is on Eliquis as well as amiodarone and carvedilol. He states the pain comes and goes, mainly in the lower abdomen. No vomiting. He states he has had constipation and diarrhea. No noted blood in the stool. He just states that it has been dark. Patient also states that he feels like it is easier to urinate when he is sitting down and then standing up. He states he has lost about 5 pounds in 9 months. Colonoscopy report from April shows that a sessile polyp was removed, pathology consistent with tubular adenoma, no evidence of carcinoma. Review of Systems Constitutional: denies: Fever, Chills Cardiac: denies: Chest pain / pressure Respiratory: denies: Dyspnea, Cough GI: reports: Constipation, Diarrhea, Bloody / black stool (Dark stools, no ziggy blood). denies: Vomiting, Hematemesis : denies: Dysuria, Frequency, Hesitancy Skin: denies: Rash Musculoskeletal: denies: Neck pain, Back pain Neurologic: denies: Headache PD PAST MEDICAL HISTORY - Past Medical History Past Medical History: Yes Cardiovascular: Atrial fibrillation Respiratory: Asthma Neuro: None Endocrine/Autoimmune: None GI: Ulcers : None HEENT: None Psych: Depression Musculoskeletal: Chronic back pain Derm: None - Past Surgical History Past Surgical History: Yes General: Appendectomy Ortho: Other - Present Medications Home Medications: Ambulatory Orders Medication Instructions Recorded Confirmed Apixaban [Eliquis] 1 tab PO BID 10/01/17 05/15/22 Albuterol Sulf [Ventolin Hfa 1 - 2 puffs INH Q4HR PRN 02/20/22 05/15/22 Inhaler] Amiodarone [Pacerone] 200 mg PO DAILY 02/20/22 05/15/22 Fluticasone/Salmeterol [Advair 1 each IH BID 02/20/22 05/15/22 500-50 Diskus] Cefdinir 300 mg PO BID #14 cap 11/26/22 metroNIDAZOLE [Flagyl] 500 mg PO BID #14 tablet 11/26/22 predniSONE [Deltasone] 10 mg PO [id number] #42 tab 11/26/22 - Allergies Allergies/Adverse Reactions: Allergies Allergy/AdvReac Type Severity Reaction Status Date / Time cephalexin Allergy Unknown Verified 11/26/22 14:33 minocycline Allergy Unknown Verified 11/26/22 14:33 Penicillins Allergy Hives Verified 11/26/22 14:33 terbinafine Allergy Unknown Verified 11/26/22 14:33 testosterone Allergy Hives Verified 11/26/22 14:33 - Social History Does the pt smoke?: No Smoking Status: Never smoker Does the pt drink ETOH?: Yes Does the pt have substance abuse?: Yes - Immunizations Immunizations are current?: Yes PD ED PE NORMAL - Vitals Vital signs reviewed: Yes - General General: Alert and oriented X 3, No acute distress - HEENT HEENT: Moist mucous membranes - Neck Neck: Supple, no meningeal sign - Cardiac Cardiac: RRR - Respiratory Respiratory: No respiratory distress, Clear bilaterally - Abdomen Abdomen: Soft, Non tender, Non distended - Male Male : Pt declined - Back Back: No CVA TTP, No spinal TTP - Derm Derm: Warm and dry - Neuro Neuro: Alert and oriented X 3 - Psych Psych: Normal mood, Normal affect Results - Vitals Vitals: Vital Signs - 24 hr 11/26/22 11/26/22 14:27 17:11 Temperature 37.1 C Heart Rate 60 66 Respiratory 16 16 Rate Blood Pressure 143/77 H 142/77 H O2 Saturation 96 98 Oxygen O2 Source Room air - Labs Labs: Laboratory Tests 11/26/22 11/26/22 11/26/22 14:34 14:34 16:52 WBC 9.1 RBC 4.99 Hgb 15.4 Hct 46.6 MCV 93.4 MCH 30.9 MCHC 33.0 RDW 13.7 Plt Count 350 MPV 10.4 Neut # (Auto) 5.8 Lymph # (Auto) 1.8 [place] # (Auto) 1.4 H Eos # (Auto) 0.1 Baso # (Auto) 0.1 Absolute Nucleated RBC 0.00 Nucleated RBC % 0.0 Sodium 138 Potassium 3.8 Chloride 104 Carbon Dioxide 29 Anion Gap 5.0 L BUN 13 Creatinine 0.8 Estimated GFR (MDRD) 98 Glucose 82 Calcium 9.2 Total Bilirubin 0.3 AST 15 ALT 13 Alkaline Phosphatase 52 Total Protein 6.1 L Albumin 3.7 Globulin 2.4 Albumin/Globulin Ratio 1.5 Lipase 31 Urine Color YELLOW Urine Clarity CLEAR Urine pH 6.5 Ur Specific [place] 1.010 Urine Protein NEGATIVE Urine Glucose (UA) NEGATIVE Urine Ketones TRACE Urine Occult Blood NEGATIVE Urine Nitrite NEGATIVE Urine Bilirubin NEGATIVE Urine Urobilinogen 0.2 (NORMAL) Ur Leukocyte Esterase NEGATIVE Ur Microscopic Review NOT INDICATED Urine Culture Comments NOT INDICATED - Rads (name of study) CT abdomen pelvis Relevant Findings:: Final report received, See rad report PD Medical Decision Making - ED course Complexity details: reviewed results, considered differential, d/w patient ED course: Patient with lower abdominal pain ongoing for the past 9 to 12 months. No significant findings on laboratory testing. CT scan reveals proctitis, inflammatory versus infectious. He states he does not have any history of inflammatory bowel disease that he is aware of. However given the ongoing length of symptoms, suspect this is a possibility. His hemoglobin is normal. He has had a relatively normal colonoscopy since this started. We will place on antibiotics and steroids and have him follow-up closely with his PCP for fur ther care. Patient is well-appearing, nontoxic. Afebrile. Patient counseled regarding signs and symptoms for which I believe and urgent re-evaluation would be necessary. Patient with good understanding of and agreement to plan and is comfortable going home at this time This document was made in part using voice recognition software. While efforts are made to proofread this document, sound alike and grammatical errors may occur. Departure - Departure Disposition: 01 Home, Self Care Clinical Impression: Proctitis Condition: Good Instructions: ED Diverticulitis Follow-Up: Jose Enrique Vaz MD [Primary Care Provider] - Within 1 week Prescriptions: Cefdinir 300 mg PO BID #14 cap predniSONE [Deltasone] 10 mg PO [id number] #42 tab metroNIDAZOLE [Flagyl] 500 mg PO BID #14 tablet Comments: Your prescriptions were sent to [facility] in [place]. Please take all antibiotics and steroids until gone. You appear to have proctitis on your CT scan today. There was no evidence of cancer on your colonoscopy in April. We will trial you on these medications for home and have you follow-up with your doctor for further care. If you do not improve as expected, they may need to repeat your colonoscopy. PROCEDURE: ABDOMEN/PELVIS W INDICATIONS: abd pain CONTRAST: 100mL Omni 300 TECHNIQUE: After the administration of IV contrast, 5 mm thick sections acquired from the diaphragms to the symphysis. 5 mm thick coronal and sagittal reformats were acquired. For radiation dose reduction, the following was used: automated exposure control, adjustment of mA and/or kV according to patient size. COMPARISON: CT chest abdomen and pelvis with, 03/02/2022 and 02/20/2022. FINDINGS: Image quality: Excellent. Lung bases and heart: Unremarkable. Liver: Mild hepatic steatosis. No solid mass. Gallbladder and biliary tree: Normal gallbladder. No gallstones. No biliary dilation. Spleen: No splenomegaly. Pancreas: No pancreatic ductal dilation. Adrenals: No adrenal nodule. Kidneys and ureters: No hydronephrosis. No renal cystic lesion which requires follow up. No solid mass. Bowel and peritoneum: There is diffuse colonic wall thickening involving sigmoid colon and rectum consistent with colitis and proctitis. There are scattered colonic diverticula in sigmoid colon. No findings to suggest acute diverticulitis. No bowel distension. No pathologic free fluid. Lymph nodes: No central or retroperitoneal adenopathy. Vessels: No infrarenal aortic aneurysm. PELVIS Reproductive organs: Unremarkable. Bladder: No abnormal wall thickening, accounting for underdistension. Pelvic lymph nodes: No pelvic adenopathy by size criteria. Bones: No aggressive osseous abnormality. Other: No significant ventral or inguinal hernia. IMPRESSION: 1. Diffuse colonic wall thickening involving sigmoid colon and rectum, consistent with colitis/proctitis. Etiologies may be infection or inflammatory bowel disease. Recommend clinical correlation. After adequate treatment of acute illness, consider colonoscopy as colon cancer could have a similar CT appearance. 2. Diverticulosis without diverticulitis. Forms: PCP List Discharge Date/Time: 11/26/22 18:46
--- NOTE | 2022-11-26 18:15 | CT Report ---
PROCEDURE: ABDOMEN/PELVIS W INDICATIONS: abd pain CONTRAST: 100mL Omni 300 TECHNIQUE: After the administration of IV contrast, 5 mm thick sections acquired from the diaphragms to the symp hysis. 5 mm thick coronal and sagittal reformats were acquired. For radiation dose reduction, the f ollowing was used: automated exposure control, adjustment of mA and/or kV according to patient size. COMPARISON: CT chest abdomen and pelvis with, 03/02/2022 and 02/20/2022. FINDINGS: Image quality: Excellent. Lung bases and heart: Unremarkable. Liver: Mild hepatic steatosis. No solid mass. Gallbladder and biliary tree: Normal gallbladder. No gallstones. No biliary dilation. Spleen: No splenomegaly. Pancreas: No pancreatic ductal dilation. Adrenals: No adrenal nodule. Kidneys and ureters: No hydronephrosis. No renal cystic lesion which requires follow up. No solid mas s. Bowel and peritoneum: There is diffuse colonic wall thickening involving sigmoid colon and rectum con sistent with colitis and proctitis. There are scattered colonic diverticula in sigmoid colon. No find ings to suggest acute diverticulitis. No bowel distension. No pathologic free fluid. Lymph nodes: No central or retroperitoneal adenopathy. Vessels: No infrarenal aortic aneurysm. PELVIS Reproductive organs: Unremarkable. Bladder: No abnormal wall thickening, accounting for underdistension. Pelvic lymph nodes: No pelvic adenopathy by size criteria. Bones: No aggressive osseous abnormality. Other: No significant ventral or inguinal hernia. IMPRESSION: 1. Diffuse colonic wall thickening involving sigmoid colon and rectum, consistent with colitis/procti tis. Etiologies may be infection or inflammatory bowel disease. Recommend clinical correlation. After adequate treatment of acute illness, consider colonoscopy as colon cancer could have a similar CT ap pearance. 2. Diverticulosis without diverticulitis. Reviewed by: Rodrigue Luther MD on 11/26/2022 6:14 PM PDT Approved by: Rodrigue Luther MD on 11/26/2022 6:14 PM PDT Station ID: [id number]
[2022-11-26] MEDS ORDERED: IOVERSOL 320 100 ML VIAL IVP ONE (23:00)
== END 2022-11-26 18:46 | disposition home or self-care (01) ==
LOC: ED 14:14
DX: K62.89 Other specified diseases of anus and rectum (principal); I48.91 Unspecified atrial fibrillation; Z79.01 Long term (current) use of anticoagulants; Z79.899 Other long term (current) drug therapy; Z79.51 Long term (current) use of inhaled steroids
CPT/HCPCS: 36415; 80053; 81001; 81003; 83690; 85025; 87086; 99284

== ENCOUNTER 2022-12-31 08:04 | Outpatient (CLI) | payer MEDICARE, OTHER ==
[2022-12-31 08:43] LABS: BILIRUBIN,URINE NEGATIVE (NEGATIVE); GLUCOSE, URINE (UA) NEGATIVE (NEGATIVE); KETONES,URINE (UA) NEGATIVE (NEGATIVE); LEUKOCYTE ESTERASE, URINE NEGATIVE (NEGATIVE); NITRITE,URINE NEGATIVE (NEGATIVE); OCCULT BLOOD,URINE NEGATIVE (NEGATIVE); PROTEIN,URINE NEGATIVE (NEGATIVE); UROBILINOGEN,URINE 0.2 (NORMAL) E.U./dL (NORMAL)
[2022-12-31 08:49] LABS: BACTERIA,URINE None Seen /HPF (None Seen); CLARITY,URINE CLEAR (CLEAR); RBC,URINE None Seen /HPF (0-5); SQUAMOUS EPITHELIAL CELL,UR NONE SEEN (<= Few); WBC,URINE 0-3 /HPF (0-3)
== END 2022-12-31 08:05 | disposition home or self-care (01) ==
LOC: LAB 08:04
PROVIDERS: ATTEND Physician Assistant
DX: R39.11 Hesitancy of micturition (principal); R93.5 Abnormal findings on diagnostic imaging of other abdominal regions, including retroperitoneum
CPT/HCPCS: 36415; 81001; 82378; 84153; 87086

== ENCOUNTER 2023-01-11 10:06 | Outpatient (CLI) | payer MEDICARE, OTHER ==
[2023-01-11 10:12] LABS: MUDS CUTOFF CONCENTRATIONS CUTOFF CONC BELOW:
[2023-01-11 13:03] LABS: AMPHETAMINE SCREEN,URINE NEGATIVE (NEGATIVE); BARBITURATE SCREEN,UR NEGATIVE (NEGATIVE); BENZODIAZEPINES SCREEN, URINE POSITIVE (NEGATIVE); COCAINE SCREEN URINE NEGATIVE (NEGATIVE); METHADONE SCREEN, URINE NEGATIVE (NEGATIVE); METHAMPHETAMINES SCREEN, URINE NEGATIVE (NEGATIVE); OPIATE SCREEN, URINE NEGATIVE (NEGATIVE); OXYCODONE SCREEN, URINE NEGATIVE (NEGATIVE); PROPOXYPHENE SCREEN, URINE NEGATIVE (NEGATIVE); THC CANNABINOID SCREEN, URINE NEGATIVE (NEGATIVE); TRICYCLIC ANTIDEPRESSANT,URINE POSITIVE (NEGATIVE)
== END 2023-01-11 10:07 | disposition home or self-care (01) ==
LOC: LAB.N 10:06
PROVIDERS: ATTEND Family Medicine
DX: R39.11 Hesitancy of micturition (principal); Z71.9 Counseling, unspecified
CPT/HCPCS: 80306

== ENCOUNTER 2023-02-05 09:01 | Outpatient (CLI) | payer MEDICARE, OTHER ==
[2023-02-05 12:20] LABS: BASOPHILS # (AUTO) 0.1 10^3/uL (0.0-0.1); BASOPHILS % (AUTO) 1.5 %; EOSINOPHILS # (AUTO) 0.1 10^3/uL (0.0-0.7); EOSINOPHILS % (AUTO) 1.1 %; HCT - HEMATOCRIT 46.9 % (42.0-52.0); HGB - HEMOGLOBIN 15.2 g/dL (14.0-18.0); LYMPHOCYTES # (AUTO) 1.8 10^3/uL (1.5-3.5); LYMPHOCYTES % (AUTO) 22.9 %; MEAN CORPUSCULAR HEMOGLOBIN 30.8 pg (27.0-31.0); MEAN CORPUSCULAR HGB CONC 32.4 g/dL (32.0-36.0); MEAN CORPUSCULAR VOLUME 94.9 fL (80.0-94.0); MEAN PLATELET VOLUME 10.4 fL (7.4-11.4); MONOCYTES # (AUTO) 0.7 10^3/uL (0.0-1.0); MONOCYTES % (AUTO) 9.2 %; NEUTROPHILS # (AUTO) 5.2 10^3/uL (1.5-6.6); NEUTROPHILS % (AUTO) 65.1 %; PLT - PLATELET COUNT 375 10^3/uL (130-450); RED BLOOD COUNT 4.94 10^6/uL (4.70-6.10); RED CELL DISTRIBUTION WIDTH 14.6 % (12.0-15.0); WHITE BLOOD COUNT 8.1 x10^3/uL (4.8-10.8)
[2023-02-05 12:37] LABS: ALBUMIN 4.1 g/dL (3.2-5.5); ALBUMIN/GLOBULIN RATIO 2.1 (1.0-2.2); ALKALINE PHOSPHATASE 58 IU/L (42-121); ALT ALANINE AMINOTRANSFERASE 13 IU/L (10-60); AST ASPARTATE AMINOTRANSFERASE 16 IU/L (10-42); BILIRUBIN,TOTAL 0.4 mg/dL (0.2-1.0); BUN - BLOOD UREA NITROGEN 13 mg/dL (6-20); CALCIUM 9.4 mg/dL (8.5-10.3); CARBON DIOXIDE - CO2 33 mmol/L (21-32); CHLORIDE 104 mmol/L (101-111); CHOL/HDL RATIO 2.2 (<5.0); CHOLESTEROL 158 mg/dL; CREATININE 0.8 mg/dL (0.6-1.3); GFR - MDRD 98 (>89); GLUCOSE 88 mg/dL (74-104); HDL CHOLESTEROL 73 mg/dL; LDL CHOLESTEROL,CALCULATED 75 mg/dL; POTASSIUM 4.3 mmol/L (3.5-4.5); SODIUM 140 mmol/L (135-145); TOTAL PROTEIN 6.1 g/dL (6.4-8.9); TRIGLYCERIDES 50 mg/dL (48-352); VLDL CHOLESTEROL 10 mg/dL
[2023-02-05 12:52] LABS: THYROID STIMULATING HORMONE 2.49 uIU/mL (0.34-5.60)
== END 2023-02-05 09:02 | disposition home or self-care (01) ==
LOC: LAB.N 09:01
PROVIDERS: ATTEND Physician Assistant
DX: K52.9 Noninfective gastroenteritis and colitis, unspecified (principal); I48.0 Paroxysmal atrial fibrillation
CPT/HCPCS: 36415; 80053; 80061; 83721; 84443; 85025

== ENCOUNTER 2023-04-03 10:12 | Outpatient (CLI) | payer MEDICARE, OTHER ==
--- NOTE | 2023-04-03 14:38 | CT Report ---
PROCEDURE: Head WO INDICATIONS: HEADACHE, FALL, FACIAL TRAUMA TECHNIQUE: Noncontrast 4.5 mm thick angled axial sections acquired from the foramen magnum to the vertex. For r adiation dose reduction, the following was used: automated exposure control, adjustment of mA and/or kV according to patient size. COMPARISON: None. FINDINGS: Image quality: Excellent. CSF spaces: Basal cisterns are patent. No extra-axial fluid collections. Ventricles are normal in size and shape. Brain: No midline shift. No intracranial masses or hemorrhage. Haynes-white matter interface is norm al. Skull and face: Right inferior orbital wall fracture. Sinuses: Visualized sinuses demonstrate mild right maxillary mucosal thickening. IMPRESSION: No acute intracranial pathology. Right inferior orbital wall fracture. Please see CT maxillofacial report for further details. Reviewed by: Bianka Valles MD on 04/03/2023 2:37 PM PST Approved by: Bianka Valles MD on 04/03/2023 2:37 PM PST Station ID: [id number]
--- NOTE | 2023-04-03 14:51 | CT Report ---
PROCEDURE: Maxillofacial WO INDICATIONS: HEADACHE, FALL, FACIAL TRAUMA TECHNIQUE: Noncontrast 1.5 mm thick axial images acquired from the mandible through the frontal sinuses, with co shelly and sagittal reformatting. For radiation dose reduction, the following was used: automated ex posure control, adjustment of mA and/or kV according to patient size. COMPARISON: None. FINDINGS: Image quality: Excellent. Bones and teeth: There is a depressed fracture of the left inferior orbital wall. There is herniation of the orbital fat as well as a small portion of the inferior rectus musculature. This extends into the superior aspect of the right maxillary sinus. Small underlying areas of mucosal thickening cannot be excluded. Low Sinus ujdge show no fracture or deformity. Nasal bones and septum are intact. Vis ualized portions of the mandible demonstrate no fractures or subluxation. Zygomatic arches are intac t. Pterygoid plates are intact. Visualized portions of the skull base and auditory canals are intac t. Sinuses: Paranasal sinuses are aerated, without fluid levels. Mastoid air cells are aerated. Soft tissues: No edema, masses, or fluid collections. No enlarged lymph nodes. No soft tissue lace rations or debris. Vascular: Visualized vascular structures appear normal in the absence of contrast. Bony vascular fo ramina and canals are intact. IMPRESSION: Depressed right inferior orbital wall fracture with orbital fat herniation. In addition, small portio n of the inferior rectus muscle also appears herniated at the fracture site. Contents extend into the right maxillary sinus. Reviewed by: Bianka Valles MD on 04/03/2023 2:50 PM PST Approved by: Bianka Valles MD on 04/03/2023 2:50 PM PST Station ID: [id number]
== END 2023-04-03 10:13 | disposition home or self-care (01) ==
LOC: DI 10:12
PROVIDERS: ATTEND Physician Assistant
DX: G44.309 Post-traumatic headache, unspecified, not intractable (principal); S02.32XA Fracture of orbital floor, left side, initial encounter for closed fracture

== ENCOUNTER 2023-12-11 10:09 | Outpatient (CLI) | payer MEDICARE, OTHER ==
--- NOTE | 2023-12-11 17:48 | CT Report ---
PROCEDURE: Lung Cancer Screen INDICATIONS: SMOKER TECHNIQUE: A CT scan of the chest was performed. Intravenous contrast media was not administered. Images were re corded and evaluated at appropriate window settings. Reformats: axial MIP of the chest, coronal and s agittal. For radiation dose reduction, the following was used: automated exposure control, adjustment of mA and/or kV according to patient size. COMPARISON: 05/19/2021. FINDINGS: Image quality: Diagnostic. Prior cancer history: Unknown Lungs:No pleural effusion, pneumothorax, or focal consolidation. No pulmonary edema. No suspicious pu lmonary nodule. Soft tissue/mediastinum/heart: Heart is normal in size. No pericardial effusion.No significant richardson ry artery calcification. Normal thoracic aorta. Enlarged main pulmonary artery, which can be seen in setting of pulmonary artery hypertension. No thoracic aortic aneurysm. No mediastinal, hilar, or axil seb lymphadenopathy. Visualized portion of the upper abdomen:Unremarkable Bones: Mild levoscoliosis of the upper thoracic spine. Scoliosis of the lumbar spine, partially visua lized. Straightening of the thoracic spine. IMPRESSION: No suspicious pulmonary nodule. Lung RAD: 1 - Negative. Recommendation: Continue annual screening in 12 Months with LDCT Non-Lung Significant Findings: None. Reviewed by: Darcy Pascual MD on 12/11/2023 5:47 PM PDT Approved by: Darcy Pascual MD on 12/11/2023 5:47 PM PDT Station ID: [id number]
== END 2023-12-11 10:10 | disposition home or self-care (01) ==
LOC: DI 10:09
PROVIDERS: ATTEND Physician Assistant
DX: Z12.2 Encounter for screening for malignant neoplasm of respiratory organs (principal); F17.210 Nicotine dependence, cigarettes, uncomplicated